=== PATIENT | male | born 1940 | race Caucasian/White ===

== ENCOUNTER 2017-02-18 15:50 | Inpatient (IN) | payer OTHER ==
[~2017-02-18] VITALS: Ht 167.6 cm; Wt 93.5 kg
--- NOTE | 2017-02-18 20:16 | DIAGNOSTIC IMAGING REPORT ---
PROCEDURE: CT LOWER EXT W/CONTRAST-LEFT INDICATION: TENDERNESS, swelling, distal blister, leukocytosis TECHNIQUE: Axial thin-slice CT images were obtained following 145 ml Isovue 300 intravenous contrast without complication. Coronal and sagittal reformations were created. COMPARISON: None. FINDINGS: A circumferential subcutaneous edema with confluent fluid layering along the superficial fascia, most extensive along the anterolateral and anteromedial lower leg. There is a skin blister measuring approximately 5.6 cm in diameter and about 1.6 cm in depth. Fairly extensive fluid along the anterolateral aspect of the ankle. Circumferential skin thickening, worse in the lower leg distally. There is mild circumferential subcutaneous edema in the lower thigh and mainly at the knee. In the proximal medial thigh in the inguinal region, there are a few mildly enlarged lymph nodes surrounded by minor fat stranding. No significant bulky adenopathy. No evidence of deep fascial fluid, soft tissue gas, joint effusion, drainable fluid collection/abscess, phlegmon, or osseous abnormality. Muscles appear normal in bulk and density without focal intramuscular abnormality or suspicious enhancement. The arterial system is patent. There is a coarse calcification in the mid to distal SFA causing a moderate subjective luminal stenosis. Mild scattered atherosclerotic calcification in the distal SFA, popliteal artery, and extending into proximal calf arteries. Arteries appear grossly patent to the foot. The venous system is patent. There are surgical clips in the medial thigh and calf suggestive of prior greater saphenous vein harvest. Subcutaneous patent, nondilated vascular structures are present circumferentially. No focal vascular malformation. Mild degenerative changes in the hip, knee, and ankle joints. IMPRESSION: 1. Subcutaneous fluid and edema circumferentially from the knee into the foot, nonspecific but most suggestive of cellulitis. Normal fluid-containing blister. 2. No drainable abscess, intramuscular or intraosseous abnormality, sign of fasciitis, or soft tissue gas. 3. Mild reactive inguinal adenopathy. 4. Mild overall arterial calcification with a moderate calcific stenosis in the mid to distal superficial femoral artery. 5. Prior greater saphenous vein harvest. 6. Discussed with Dr. Robles in the emergency room.
--- NOTE | 2017-02-18 20:17 | DIAGNOSTIC IMAGING REPORT ---
PROCEDURE: US VENOUS - LEFT EXT INDICATION: SWELLING TECHNIQUE: Duplex sonography of the deep venous system in the left lower extremity was performed. Compression and augmentation techniques were used. COMPARISON: None. FINDINGS: Each interrogated segment of deep vein from the common femoral vein into the calf veins demonstrates normal compressibility, augmentation and/or color Doppler flow without filling defect. Moderate to significant subcutaneous edema. No focal drainable fluid collection. IMPRESSION: 1. No deep venous thrombosis in the left lower extremity. 2. Moderate to significant edema noted.
--- NOTE | 2017-02-18 20:40 | ED ORDER SUMMARY ---
..... Patient: MAYTE LAWSON OrderSheet [facility] VisitID: [id number] [place] [address] 76y, M Registration Date/Time: 02/18/2017 ORDER SHEET Weight: 88.4 kg (stated) Allergies: None GENERAL ORDERS: Blood Culture (No) (N/A) Urgent (16:02/18/2017 Odin Beal) (Ack 16:37 LNations ER Tech1) (16:55 KPage-Kuchan R.N.) CBC w Diff Urgent (16:02/18/2017 Odin Beal) (Ack 16:37 LNations ER Tech1) (16:55 KPage-Kuchan R.N.) CMP Urgent (16:02/18/2017 Odin Beal) (Ack 16:37 LNations ER Tech1) (16:55 KPage-Kuchan R.N.) UA-Culture if indicated Urgent (16:02/18/2017 Odin Beal) (Ack 16:37 LNations ER Tech1) (18:48 KPage-Kuchan R.N.) BNP Urgent (16:02/18/2017 Odin Beal) (Ack 16:37 LNations ER Tech1) (16:55 KPage-Kuchan R.N.) D-Dimer Urgent (16:02/18/2017 Odin Beal) (Ack 16:37 LNations ER Tech1) (16:55 KPage-Kuchan R.N.) Lactic Acid for Sepsis Protocol Urgent (16:02/18/2017 Odin Beal) (Ack 16:37 LNations ER Tech1) (16:55 KPage-Kuchan R.N.) PCT (Procalcitonin) Urgent (16:02/18/2017 Odin Beal) (Ack 16:37 LNations ER Tech1) (16:55 KPage-Kuchan R.N.) EKG - ER Stat (16:02/18/2017 Odin Beal) (Ack 16:33 LNations ER Tech1) (16:39 IJurca ER Tech1) CRP Urgent (16:51 02/18/2017 Odin Beal) (Ack 17:04 LNations ER Tech1) (18:38 KPage-Kuchan R.N.) Sed Rate Urgent (16:51 02/18/2017 Odin Beal) (Ack 17:04 LNations ER Tech1) (18:38 KPage-Kuchan R.N.) PT with INR Urgent (18:01 02/18/2017 Odin Beal) (Ack 18:04 LNations ER Tech1) (18:38 KPage-Kuchan R.N.) PTT Urgent (18:01 02/18/2017 Odin Beal) (Ack 18:04 LNations ER Tech1) (18:38 KPage-Kuchan R.N.) CPK Urgent (18:01 02/18/2017 Odin Beal) (Ack 18:04 LNations ER Tech1) (18:38 KPage-Kuchan R.N.) US Venous Left Urgent (18:06 02/18/2017 Odin Beal) (Ack 18:10 LNations ER Tech1) (18:27 LNations ER Tech1) CT Lower Extremity With Contrast - Left (BUN/Cr 16/0.8) Urgent (18:46 02/18/2017 Odin Beal) (Ack 18:52 LNations ER Tech1) (19:39 MCampbell) Culture, Body Fluid (Body Fluid) (BLISTER) Urgent (19:55 02/18/2017 Richard ER [employer]erry[employer] verbal order read back to Odin Beal) (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 (20:53 02/18/2017)] [Electronically signed by Rhianna Lai R.N. (22:12 02/18/2017)] [Electronically locked/signed by Rhianna Lai R.N. (22:12 02/18/2017)]
--- NOTE | 2017-02-18 20:40 | ED CLINICAL REPORT ---
Clinical Report - Physicians/Mid Levels [facility] [address] [place] [address] 02/18/2017 15:53 Patient: MAYTE LAWSON Time Seen: 16:04; initial patient contact. Arrived- By private vehicle. Historian- patient. HISTORY OF PRESENT ILLNESS Chief Complaint: Injury to left leg. The injury happened about days ago. Injury secondary to other mechansim (unknown). Patient is experiencing moderate pain. Patient denies injury to the head or neck. REVIEW OF SYSTEMS The patient complains of pain on weight bearing. He has had swelling. No tingling, weakness, numbness, suspected foreign body or skin laceration. No chills or fever. All systems otherwise negative, except as recorded above. PAST HISTORY ( Hypertension. Elevated Cholesterol. A fib CAD ADDITIONAL SURGERIES: Appendectomy. AVR. CABG Back Surgery. Hernia Repair. Tonsillectomy. -). Medications: Tamsulosin HCl Oral (Capsule 0.4 mg) 1 capsule, daily. Potassium Chloride ER Oral (Tablet Extended Release 10 meq) 1 tablet, daily. Pitavastatin Calcium Oral (Tablet 4 mg) 1 tablet, daily. Hydrocodone-Acetaminophen Oral (Tablet 7.5-325 mg). Gabapentin Oral 300 mg, 3x a day. Furosemide Oral 40 mg, daily as needed. Finasteride Oral (Tablet 5 mg) 1 tablet, daily. Vitamin B-12 Oral 2500 mcg, daily. Cholecalciferol Oral (Tablet 1000 unit) 1 tablet, daily. Carvedilol Phosphate ER Oral 6.25 mg, daily. Warfarin Sodium Oral (take 2mg friday, friday, , friday, friday and friday and 3mg on tuesdays). Allergies: None. SOCIAL HISTORY Former smoker. Occasional alcohol use. No drug use. ADDITIONAL NOTES The nursing notes have been reviewed. PHYSICAL EXAM Vital Signs: 02/18/2017 16:00 BP: 121/70. HR: 54. RR: 17. O2 saturation: 98%. Temp: 98.8 F. Pain level now: 10. Have been reviewed. Blood pressure normal. Bradycardic. Respiratory rate normal. Temperature normal. Oxygen saturation normal. Appearance: Alert. Oriented X3. No acute distress. Head: Head atraumatic. Eyes: Eyes normal inspection. No pale conjunctivae. ENT: Pharynx normal. CVS: Normal heart rate and rhythm. 2/6 holosystolic systolic murmur. Respiratory: No respiratory distress. Breath sounds normal. Skin: Large area of cellulitis with tenderness, erythema and warmth to left thigh and left leg. Extremities: (Left thigh and leg with +2 edema and erythema and patches of purpura. Large bullae on calf with clear/straw colored fluid.). Extremities otherwise negative. Neuro, Vascular and Tendons: Vascular status intact. Sensation intact. Motor intact. Tendon function intact. Neuro: Oriented X 3. No motor deficit. LABS, X-RAYS, AND EKG Note - Special Studies: CT Left lower extremity: 1. Subcutaneous fluid and edema circumferentially from the knee into the foot, nonspecific but most suggestive of cellulitis. Normal fluid-containing blister. 2. No drainable abscess, intramuscular or intraosseous abnormality, sign of fasciitis, or soft tissue gas. 3. Mild reactive inguinal adenopathy. 4. Mild overall arterial calcification with a moderate calcific stenosis in the mid to distal superficial femoral artery. 5. Prior greater saphenous vein harvest. Laboratory Tests: UA-Culture if indicated: (LILIANA: 02/18/2017 17:13) ( MsgRcvd 02/18/2017 17:46) Final results Test Result Flag Units (Reference) URINE COLOR KRISTIE URINE APPEARANCE CLEAR URINE GLUCOSE NEGATIVE (NEGATIVE) URINE BILIRUBIN NEGATIVE (NEGATIVE) URINE KETONE 1+ (NEGATIVE) URINE SPECIFIC GRAVITY 1.020 (1.010-1.030) URINE PH 6.0 (5.0-8.0) URINE PROTEIN TRACE (NEGATIVE) URINE UROBILINOGEN 0.2 EU/dL (0.2-1.0) URINE NITRITE NEGATIVE (NEGATIVE) URINE BLOOD 1+ (NEGATIVE) URINE LEUK ESTERASE NEGATIVE (NEGATIVE) URINE RBC 0-1 rbc/hpf (0-1) URINE WBC 1-3 wbc/hpf (0-1) URINE EPITHELIAL CELLS RARE EPI/hpf (0-5) URINE BACTERIA MODERATE (2+ TO 3+) (NONE SEEN) URINE COMMENT CULTURE INDICATED 3+ MUCUS1-3 HYALINE CAST PER LOWER POWER FIELD.URINE CULTURES ARE SET-UP BASED ON THE FOLLOWING CRITERIA:POSITIVE NITRITEPOSITIVE LEUKOCYTE ESTERASEGREATER THAN 10 WHITE BLOOD CELLSMODERATE (2+) OR GREATER BACTERIA ESR: (LILIANA: 02/18/2017 16:13) ( [facility] 02/18/2017 17:17) Final results Test Result Flag Units (Reference) SED RATE WESTERGREN 25 H mm/hr (0-20) CBC w Diff: (LILIANA: 02/18/2017 16:13) ( [facility] 02/18/2017 17:30) Final results Test Result Flag Units (Reference) WHITE BLOOD COUNT 21.9 H K/uL (4.5-11.5) RED BLOOD COUNT 4.95 M/uL (4.50-5.90) HEMOGLOBIN 14.6 gm/dL (13.5-17.5) HEMATOCRIT 43.5 % (41.0-53.0) MEAN CELL VOLUME 88 fL (80-100) MEAN CORPUSCULAR HGB 30 pg (26-34) MEAN CORPUSCULAR HGB CONC 34 g/dL (31-37) RED CELL DISTRIBUTION WIDTH 14.0 % (11.6-14.8) PLATELET COUNT 129 L K/uL (150-400) POLY % 66 % (50-75) BAND % 17 H % (0-8) LYMPH 12 L % (25-40) MONO 4 % (3-14) EOSINOPHIL % 1 % (0-4) BASOPHIL % 0 % (0-2) METAMYELOCYTE % 0 % (0-1) MYELOCYTE 0 % (0-1) OTHER CELL TYPE 0 RBC MORPHOLOGY NORMOCYTIC~~NORMOCHROMIC PT with INR: (LILIANA: 02/18/2017 16:13) ( [facility] 02/18/2017 18:14) Final results Test Result Flag Units (Reference) INR 1.5 H (0.8-1.2) Low Intensity Therapy: INR 1.5-2.0 PT range 18.5-23.1Mod.Intensity Therapy: INR 2.0-3.0 PT range 23.1-31.5High Intensity Therapy: INR 2.5-3.5 PT range 27.4-35.5High Intensity Therapy 2: INR 3.0-4.0 PT range 31.5-39.3 APTT 40 H SECONDS (24-34) [id number]: (LILIANA: 02/18/2017 16:13) ( [facility] 02/18/2017 17:27) Final results Test Result Flag Units (Reference) D-DIMER QUANTITATIVE 2.24 H ug/mLFEU (0.27-0.52) The primary value of this quantitative assay relates toits negative predictive value (i.e. exclusion) of pulmonaryembolism/deep vein thrombosis/DIC.Elevated levels of d-dimer may also occur with:, age, cancer, inflammation, liver disease,post-op, infection, hematoma, coronary disease, peripheralarteriopathy, bleeding disorders and thrombolytic treatment.Results should be correlated with other clinical andradiological data.Testing Methodology: Latex Immunoassay CPK: (LILIANA: 02/18/2017 16:13) ( [facility] 02/18/2017 18:34) Final results Test Result Flag Units (Reference) CPK 539 H U/L (24-260) CK-MB 2.9 ng/mL (0.5-3.2) %CKMB 0.5 % (0.0-4.0) [id number]: (LILIANA: 02/18/2017 16:13) ( [facility] 02/18/2017 17:23) Final results Test Result Flag Units (Reference) C-REACTIVE PROTEIN 24.6 H mg/dL (0.0-0.9) BNP: (LILIANA: 02/18/2017 16:13) ( [facility] 02/18/2017 17:27) Final results Test Result Flag Units (Reference) B-TYPE NATRIURETIC PEPTIDE 362 H pg/ml (5-100) [id number]: (LILIANA: 02/18/2017 16:49) ( MsgRcvd 02/18/2017 17:34) Final results Test Result Flag Units (Reference) LACTIC ACID SEPSIS PROTOCOL 1.5 mmol/L (0.4-2.0) [id number]: (LILIANA: 02/18/2017 16:13) ( MsgRcvd 02/18/2017 17:27) Final results Test Result Flag Units (Reference) PROCALCITONIN 0.6 H ng/mL (0-0.5) PCT Concentration: Interpretation : Risk/option for action PCT <=0.5 ng/mL : Systemic : Low risk forinfection(sepsis): progression to severeis not likely. : systemic infection.Local bacterial : CAUTION-PCT levelsinfection is : below 0.5 ng/mL do notpossible. : exclude an infection,because localizedinfections (withoutsystemic signs) may beassociated with suchlow levels. If PCT ismeasured very earlyafter a bacterialchallenge (usually <6hours), these valuesmay still be low. Inthis case PCT shouldbe re-assessed 6-24hours later. PCT >0.5 and : Systemic infection: Moderate risk for<= 2 ng/mL : (sepsis) is : progression to severepossible, but : systemic infection.other conditions : The patient should beare known to : closely monitoredelevate PCT. : both clinically andby re-assessing PCTwithin 6-24 hours. PCT > 2 ng/mL : Systemic infection: High risk for(sepsis) is likely: progression to severeunless other : systemic infection.causes are known. : PCT >= 10 ng/mL : Important systemic: High likelihood ofinflammatory : severe sepsis orresponse, almost : septic shock.exclusively due to:severe bacterial :sepsis or septic :shock. : CMP: (LILIANA: 02/18/2017 16:13) ( MsgRcvd 02/18/2017 17:02) Final results Test Result Flag Units (Reference) GLUCOSE 123 H mg/dL (70-110) BUN 16 mg/dL (7-18) CREATININE 0.8 mg/dL (0.6-1.3) Estimated GFR >60 mL/min Estimated GFR- >60 mL/min Note: Persistent reduction over 3 months in eGFR<60 mL/min/1.73 m2 defines CKD. Patients with eGFR values>=60 mL/min/1.73 m2 may also have CKD if evidence ofpersistent proteinuria. Additional information may be foundat www.kidney.org. SODIUM 136 mmol/L (136-145) POTASSIUM 3.8 mmol/L (3.5-5.1) CHLORIDE 98 mmol/L (98-107) CARBON DIOXIDE 25 mmol/L (21-32) CALCIUM 9.0 mg/dL (8.5-10.1) TOTAL PROTEIN 7.5 g/dL (6.4-8.2) ALBUMIN 3.1 L g/dL (3.3-5.0) BILIRUBIN, TOTAL 1.8 H mg/dL (0.0-1.0) ALKALINE PHOSPHATASE 76 U/L (46-116) AST (SGOT) 37 U/L (15-37) ALT (SGPT) 43 U/L (12-78) . PROGRESS AND PROCEDURES Discussed case with hospitalist, (call returned 18:07 Dr. Zaragoza, add a CPK and US LLE and will go from there.). Reviewed test results and need for additional work-up. Discussed case with hospitalist, (call returned 20:38 Dr. Zaragoza). Reviewed test results and need for additional work-up. Health care provider will see patient in ED. Disposition: Admitted to Acute Care. Condition: good. Admit decision based on need for additional testing, observation and IV antibiotics. CLINICAL IMPRESSION Cellulitis of the left thigh and left lower leg. Moderate leukocytosis with bandemia. INSTRUCTIONS Your Current Medications: CONTINUE TAKING THE FOLLOWING MEDICATIONS: Carvedilol Phosphate ER Oral : 6.25 mg daily. Cholecalciferol Oral : Tablet 1000 unit, 1 tablet daily. Finasteride Oral : Tablet 5 mg, 1 tablet daily. Furosemide Oral : 40 mg daily, prn. Gabapentin Oral : 300 mg 3x a day. Hydrocodone-Acetaminophen Oral : Tablet 7.5-325 mg. Pitavastatin Calcium Oral : Tablet 4 mg, 1 tablet daily. Potassium Chloride ER Oral : Tablet Extended Release 10 meq, 1 tablet daily. Tamsulosin HCl Oral : Capsule 0.4 mg, 1 capsule daily. Vitamin B-12 Oral : 2500 mcg daily. Warfarin Sodium Oral : take 2mg friday, friday, , friday, friday and friday and 3mg on tuesdays. Follow-up: Blood pressure screening was not performed during this visit because the patient has an active diagnosis of hypertension. (Electronically signed by Fermin Robles Dr. 02/18/2017 20:53)
--- NOTE | 2017-02-18 20:40 | ED CLINICAL REPORT ---
Clinical Report - Physicians/Mid Levels [facility] [address] [place] [address] 02/18/2017 15:53 Patient: MAYTE LAWSON Time Seen: 16:04; initial patient contact. Arrived- By private vehicle. Historian- patient. HISTORY OF PRESENT ILLNESS Chief Complaint: Injury to left leg. The injury happened about days ago. Injury secondary to other mechansim (unknown). Patient is experiencing moderate pain. Patient denies injury to the head or neck. REVIEW OF SYSTEMS The patient complains of pain on weight bearing. He has had swelling. No tingling, weakness, numbness, suspected foreign body or skin laceration. No chills or fever. All systems otherwise negative, except as recorded above. PAST HISTORY ( Hypertension. Elevated Cholesterol. A fib CAD ADDITIONAL SURGERIES: Appendectomy. AVR. CABG Back Surgery. Hernia Repair. Tonsillectomy. -). Medications: Tamsulosin HCl Oral (Capsule 0.4 mg) 1 capsule, daily. Potassium Chloride ER Oral (Tablet Extended Release 10 meq) 1 tablet, daily. Pitavastatin Calcium Oral (Tablet 4 mg) 1 tablet, daily. Hydrocodone-Acetaminophen Oral (Tablet 7.5-325 mg). Gabapentin Oral 300 mg, 3x a day. Furosemide Oral 40 mg, daily as needed. Finasteride Oral (Tablet 5 mg) 1 tablet, daily. Vitamin B-12 Oral 2500 mcg, daily. Cholecalciferol Oral (Tablet 1000 unit) 1 tablet, daily. Carvedilol Phosphate ER Oral 6.25 mg, daily. Warfarin Sodium Oral (take 2mg friday, friday, , friday, friday and friday and 3mg on tuesdays). Allergies: None. SOCIAL HISTORY Former smoker. Occasional alcohol use. No drug use. ADDITIONAL NOTES The nursing notes have been reviewed. PHYSICAL EXAM Vital Signs: 02/18/2017 16:00 BP: 121/70. HR: 54. RR: 17. O2 saturation: 98%. Temp: 98.8 F. Pain level now: 10. Have been reviewed. Blood pressure normal. Bradycardic. Respiratory rate normal. Temperature normal. Oxygen saturation normal. Appearance: Alert. Oriented X3. No acute distress. Head: Head atraumatic. Eyes: Eyes normal inspection. No pale conjunctivae. ENT: Pharynx normal. CVS: Normal heart rate and rhythm. 2/6 holosystolic systolic murmur. Respiratory: No respiratory distress. Breath sounds normal. Skin: Large area of cellulitis with tenderness, erythema and warmth to left thigh and left leg. Extremities: (Left thigh and leg with +2 edema and erythema and patches of purpura. Large bullae on calf with clear/straw colored fluid.). Extremities otherwise negative. Neuro, Vascular and Tendons: Vascular status intact. Sensation intact. Motor intact. Tendon function intact. Neuro: Oriented X 3. No motor deficit. LABS, X-RAYS, AND EKG Note - Special Studies: CT Left lower extremity: 1. Subcutaneous fluid and edema circumferentially from the knee into the foot, nonspecific but most suggestive of cellulitis. Normal fluid-containing blister. 2. No drainable abscess, intramuscular or intraosseous abnormality, sign of fasciitis, or soft tissue gas. 3. Mild reactive inguinal adenopathy. 4. Mild overall arterial calcification with a moderate calcific stenosis in the mid to distal superficial femoral artery. 5. Prior greater saphenous vein harvest. Laboratory Tests: UA-Culture if indicated: (LILIANA: 02/18/2017 17:13) ( MsgRcvd 02/18/2017 17:46) Final results Test Result Flag Units (Reference) URINE COLOR KRISTIE URINE APPEARANCE CLEAR URINE GLUCOSE NEGATIVE (NEGATIVE) URINE BILIRUBIN NEGATIVE (NEGATIVE) URINE KETONE 1+ (NEGATIVE) URINE SPECIFIC GRAVITY 1.020 (1.010-1.030) URINE PH 6.0 (5.0-8.0) URINE PROTEIN TRACE (NEGATIVE) URINE UROBILINOGEN 0.2 EU/dL (0.2-1.0) URINE NITRITE NEGATIVE (NEGATIVE) URINE BLOOD 1+ (NEGATIVE) URINE LEUK ESTERASE NEGATIVE (NEGATIVE) URINE RBC 0-1 rbc/hpf (0-1) URINE WBC 1-3 wbc/hpf (0-1) URINE EPITHELIAL CELLS RARE EPI/hpf (0-5) URINE BACTERIA MODERATE (2+ TO 3+) (NONE SEEN) URINE COMMENT CULTURE INDICATED 3+ MUCUS1-3 HYALINE CAST PER LOWER POWER FIELD.URINE CULTURES ARE SET-UP BASED ON THE FOLLOWING CRITERIA:POSITIVE NITRITEPOSITIVE LEUKOCYTE ESTERASEGREATER THAN 10 WHITE BLOOD CELLSMODERATE (2+) OR GREATER BACTERIA ESR: (LILIANA: 02/18/2017 16:13) ( [facility] 02/18/2017 17:17) Final results Test Result Flag Units (Reference) SED RATE WESTERGREN 25 H mm/hr (0-20) CBC w Diff: (LILIANA: 02/18/2017 16:13) ( [facility] 02/18/2017 17:30) Final results Test Result Flag Units (Reference) WHITE BLOOD COUNT 21.9 H K/uL (4.5-11.5) RED BLOOD COUNT 4.95 M/uL (4.50-5.90) HEMOGLOBIN 14.6 gm/dL (13.5-17.5) HEMATOCRIT 43.5 % (41.0-53.0) MEAN CELL VOLUME 88 fL (80-100) MEAN CORPUSCULAR HGB 30 pg (26-34) MEAN CORPUSCULAR HGB CONC 34 g/dL (31-37) RED CELL DISTRIBUTION WIDTH 14.0 % (11.6-14.8) PLATELET COUNT 129 L K/uL (150-400) POLY % 66 % (50-75) BAND % 17 H % (0-8) LYMPH 12 L % (25-40) MONO 4 % (3-14) EOSINOPHIL % 1 % (0-4) BASOPHIL % 0 % (0-2) METAMYELOCYTE % 0 % (0-1) MYELOCYTE 0 % (0-1) OTHER CELL TYPE 0 RBC MORPHOLOGY NORMOCYTIC~~NORMOCHROMIC PT with INR: (LILIANA: 02/18/2017 16:13) ( [facility] 02/18/2017 18:14) Final results Test Result Flag Units (Reference) INR 1.5 H (0.8-1.2) Low Intensity Therapy: INR 1.5-2.0 PT range 18.5-23.1Mod.Intensity Therapy: INR 2.0-3.0 PT range 23.1-31.5High Intensity Therapy: INR 2.5-3.5 PT range 27.4-35.5High Intensity Therapy 2: INR 3.0-4.0 PT range 31.5-39.3 APTT 40 H SECONDS (24-34) [id number]: (LILIANA: 02/18/2017 16:13) ( [facility] 02/18/2017 17:27) Final results Test Result Flag Units (Reference) D-DIMER QUANTITATIVE 2.24 H ug/mLFEU (0.27-0.52) The primary value of this quantitative assay relates toits negative predictive value (i.e. exclusion) of pulmonaryembolism/deep vein thrombosis/DIC.Elevated levels of d-dimer may also occur with:, age, cancer, inflammation, liver disease,post-op, infection, hematoma, coronary disease, peripheralarteriopathy, bleeding disorders and thrombolytic treatment.Results should be correlated with other clinical andradiological data.Testing Methodology: Latex Immunoassay CPK: (LILIANA: 02/18/2017 16:13) ( [facility] 02/18/2017 18:34) Final results Test Result Flag Units (Reference) CPK 539 H U/L (24-260) CK-MB 2.9 ng/mL (0.5-3.2) %CKMB 0.5 % (0.0-4.0) [id number]: (LILIANA: 02/18/2017 16:13) ( [facility] 02/18/2017 17:23) Final results Test Result Flag Units (Reference) C-REACTIVE PROTEIN 24.6 H mg/dL (0.0-0.9) BNP: (LILIANA: 02/18/2017 16:13) ( [facility] 02/18/2017 17:27) Final results Test Result Flag Units (Reference) B-TYPE NATRIURETIC PEPTIDE 362 H pg/ml (5-100) [id number]: (LILIANA: 02/18/2017 16:49) ( MsgRcvd 02/18/2017 17:34) Final results Test Result Flag Units (Reference) LACTIC ACID SEPSIS PROTOCOL 1.5 mmol/L (0.4-2.0) [id number]: (LILIANA: 02/18/2017 16:13) ( MsgRcvd 02/18/2017 17:27) Final results Test Result Flag Units (Reference) PROCALCITONIN 0.6 H ng/mL (0-0.5) PCT Concentration: Interpretation : Risk/option for action PCT <=0.5 ng/mL : Systemic : Low risk forinfection(sepsis): progression to severeis not likely. : systemic infection.Local bacterial : CAUTION-PCT levelsinfection is : below 0.5 ng/mL do notpossible. : exclude an infection,because localizedinfections (withoutsystemic signs) may beassociated with suchlow levels. If PCT ismeasured very earlyafter a bacterialchallenge (usually <6hours), these valuesmay still be low. Inthis case PCT shouldbe re-assessed 6-24hours later. PCT >0.5 and : Systemic infection: Moderate risk for<= 2 ng/mL : (sepsis) is : progression to severepossible, but : systemic infection.other conditions : The patient should beare known to : closely monitoredelevate PCT. : both clinically andby re-assessing PCTwithin 6-24 hours. PCT > 2 ng/mL : Systemic infection: High risk for(sepsis) is likely: progression to severeunless other : systemic infection.causes are known. : PCT >= 10 ng/mL : Important systemic: High likelihood ofinflammatory : severe sepsis orresponse, almost : septic shock.exclusively due to:severe bacterial :sepsis or septic :shock. : CMP: (LILIANA: 02/18/2017 16:13) ( MsgRcvd 02/18/2017 17:02) Final results Test Result Flag Units (Reference) GLUCOSE 123 H mg/dL (70-110) BUN 16 mg/dL (7-18) CREATININE 0.8 mg/dL (0.6-1.3) Estimated GFR >60 mL/min Estimated GFR- >60 mL/min Note: Persistent reduction over 3 months in eGFR<60 mL/min/1.73 m2 defines CKD. Patients with eGFR values>=60 mL/min/1.73 m2 may also have CKD if evidence ofpersistent proteinuria. Additional information may be foundat [email or web address]. SODIUM 136 mmol/L (136-145) POTASSIUM 3.8 mmol/L (3.5-5.1) CHLORIDE 98 mmol/L (98-107) CARBON DIOXIDE 25 mmol/L (21-32) CALCIUM 9.0 mg/dL (8.5-10.1) TOTAL PROTEIN 7.5 g/dL (6.4-8.2) ALBUMIN 3.1 L g/dL (3.3-5.0) BILIRUBIN, TOTAL 1.8 H mg/dL (0.0-1.0) ALKALINE PHOSPHATASE 76 U/L (46-116) AST (SGOT) 37 U/L (15-37) ALT (SGPT) 43 U/L (12-78) . PROGRESS AND PROCEDURES Discussed case with hospitalist, (call returned 18:07 Dr. Zaragoza, add a CPK and US LLE and will go from there.). Reviewed test results and need for additional work-up. Discussed case with hospitalist, (call returned 20:38 Dr. Zaragoza). Reviewed test results and need for additional work-up. Health care provider will see patient in ED. Disposition: Admitted to Acute Care. Condition: good. Admit decision based on need for additional testing, observation and IV antibiotics. CLINICAL IMPRESSION Cellulitis of the left thigh and left lower leg. Moderate leukocytosis with bandemia. INSTRUCTIONS Your Current Medications: CONTINUE TAKING THE FOLLOWING MEDICATIONS: Carvedilol Phosphate ER Oral : 6.25 mg daily. Cholecalciferol Oral : Tablet 1000 unit, 1 tablet daily. Finasteride Oral : Tablet 5 mg, 1 tablet daily. Furosemide Oral : 40 mg daily, prn. Gabapentin Oral : 300 mg 3x a day. Hydrocodone-Acetaminophen Oral : Tablet 7.5-325 mg. Pitavastatin Calcium Oral : Tablet 4 mg, 1 tablet daily. Potassium Chloride ER Oral : Tablet Extended Release 10 meq, 1 tablet daily. Tamsulosin HCl Oral : Capsule 0.4 mg, 1 capsule daily. Vitamin B-12 Oral : 2500 mcg daily. Warfarin Sodium Oral : take 2mg friday, friday, , friday, friday and friday and 3mg on tuesdays. Follow-up: Blood pressure screening was not performed during this visit because the patient has an active diagnosis of hypertension. (Electronically signed by Fermin Robles Dr. 02/18/2017 20:53)
--- NOTE | 2017-02-18 20:40 | ED NURSING NOTES ---
Clinical Report - Nurses [facility] [address] [place] [address] 02/18/2017 15:53 Patient: MAYTE LAWSON TRIAGE Triage time 16:00 Feb 18 2017. Chief Complaint: RIGHT LOWER EXTREMITY PAIN, SWELLING and REDNESS. Location of symptoms- (pt reports 3 days ago waking with redness to inner left knee, over the next 2 days pain, redness and swelling has increased to now it's draining fluid. pt today went to urgent care and was sent in for an eval). Alert. SEPSIS SCREEN: Sepsis Screen: negative. Infection suspected/documented. ROSA COMA SCORE: Rosa Coma Scale: 15- eyes open spontaneously (4); best verbal response- oriented x 4 (5); best motor response- obeys commands (6). --16:10 Mahesh Reyes R.N. 16:00 02/18/17. BP: 121/70. HR: 54. RR: 17. O2 saturation: 98%. Temp: 98.8 F. Pain level now: 6/10. --16:10 Mahesh Reyes R.N. 21:12 02/18/17. BP: 134/91. HR: 97. RR: 17. O2 saturation: 97%. Pain level now: 0/10. --21:17 Mahesh Reyes R.N. Weight: 88.4 kg stated. Height/Length: 66 inches Per Patient. BMI: 31.5. --16:02 Mahesh Reyes R.N. Medications Warfarin Sodium Oral (take 2mg friday, friday, , friday, friday and friday and 3mg on tuesdays). --16:04 Mahesh Reyes R.N. Carvedilol Phosphate ER Oral 6.25 mg, daily. --19:47 Mahesh Reyes R.N. Cholecalciferol Oral (Tablet 1000 unit) 1 tablet, daily. --19:47 Mahesh Reyes R.N. Vitamin B-12 Oral 2500 mcg, daily. --19:48 Mahesh Reyes R.N. Finasteride Oral (Tablet 5 mg) 1 tablet, daily. --19:48 Mahesh Reyes R.N. Furosemide Oral 40 mg, daily as needed. --19:49 Mahesh Reyes R.N. Gabapentin Oral 300 mg, 3x a day. --19:49 Mahesh Reyes R.N. Hydrocodone-Acetaminophen Oral (Tablet 7.5-325 mg). --19:50 Mahesh Reyes R.N. Pitavastatin Calcium Oral (Tablet 4 mg) 1 tablet, daily. --19:51 Mahesh Reyes R.N. Potassium Chloride ER Oral (Tablet Extended Release 10 meq) 1 tablet, daily. --19:51 Mahesh Reyes R.N. Tamsulosin HCl Oral (Capsule 0.4 mg) 1 capsule, daily. --19:52 Mahesh Reyes R.N. The following entry was struck and corrected by Mahesh Reyes R.N., 19:55 (02/18/17) Reason for correction - other(correction). <<STRICKEN ENTRY-- Warfarin Sodium Oral. --16:04 Mahesh Reyes R.N. --END STRIKE>>. Allergies None. --16:05 Mahesh Reyes R.N. Medication/allergy information source: the patient. --16:10 Mahesh Reyes R.N. Medication/allergy information source: other ([facility] fax). --19:57 Mahesh Reyes R.N. History Arrived by private vehicle. Historian: patient. Accompanied by family. Location of injuries: left knee, left leg, left ankle and left foot. This occurred (3 days ago). He has had swelling, redness, trouble walking and weakness. Treatment TOOTH CUTTER: None. PAST MEDICAL HX: Tetanus status: up-to-date. Immunizations: up-to-date. SOCIAL HX: Former smoker, end date 1971. Occasional alcohol use. No drug use. No infectious disease exposure. ABUSE ASSESSMENT: No report of abuse. SELF HARM ASSESSMENT: A self harm assessment was performed. The patient answered "no" to the question "Do you have thoughts of harming or killing yourself?". FALL RISK ASSESSMENT: Fall risk assessment completed. Risk factors identified include patient age greater than 65 years, history of fall and impairment of mobility. Fall interventions initiated. Patient placed in wheelchair. Side rails up x2. Brakes on Bed in low position. Patient visible from nurses' station and identified as a fall risk by ID band. Family at bedside. Call light in reach of patient and family. Instructed not to get up without assistance. --16:10 Mahesh Reyes R.N. PROBLEMS: Hypertension. Elevated Cholesterol. --16:07 Mahesh Reyes R.N. ADDITIONAL SURGERIES: Appendectomy. AVR. Back Surgery. Hernia Repair. Tonsillectomy. --16:07 Mahesh Reyes R.N. Interventions ID band on patient. To treatment room. --16:10 Mahesh Reyes R.N. PHYSICAL ASSESSMENT To room via wheelchair. Patient gowned. GENERAL / NEURO / PSYCH: Oriented X 4. Alert. EXTREMITIES: Serous drainage on the extremities (from rai and inner ankle). Bilateral pitting and seeping edema of the lower extremities involving both feet, both ankles and both lower legs; 3+ pitting and seeping edema of the right lower extremity; pitting and seeping edema of the left lower extremity involving the foot, ankle and lower leg. Left knee. Left leg: tenderness, swelling and erythema. Left ankle: tenderness, swelling and erythema. Left foot. --16:11 Mahesh Reyes R.N. NURSING PROGRESS NOTES coffee brewer, pulse oximeter and NIBP monitor placed on patient; monitor alarms on. Reassurance given to the patient and patient's family. ( pt placed on monitor after listening to heart, pt has a murmur, hr in the one teens, with pvc's). --16:23 Mahesh Reyes R.N. 16:21 02/18/17. HR: 108. --16:23 Mahesh Reyes R.N. EKG time: (1634). EKG was ordered, performed by a tech and shown to the ED physician. --16:40 CintiaJoseph wheat, ER Tech1 16:29 02/18/2017 Site #1 started via IV in the right antecubital space with an 20g angiocath; one attempt. Blood drawn: rainbow set. Labeled in the presence of the patient and sent to the lab. Saline lock flushed with 10 mL saline (placed by Bertha). --16:54 Mahesh Reyes R.N. 16:50 02/18/2017 Site #2 started via IV in the right hand with an 20g angiocath; one attempt. Blood drawn: cultures x1. Labeled in the presence of the patient and sent to the lab. Saline lock flushed with 10 mL saline (lactate). --16:56 Mahesh Reyes R.N. coffee brewer, pulse oximeter and NIBP monitor placed on patient; cardiac/vascular sonographer- Lead II, aVR and V5; monitor alarms on. Reassurance given. Patient identifiers checked. Call light placed in reach. Side rails up x 2. Bed placed in lowest position. Brakes of bed on. Patient waiting for lab and radiology results. ( pt provided urinal to void,). --16:57 Mahesh Reyes R.N. 16:57 02/18/17. BP: 129/92. HR: 109. RR: 17. O2 saturation: 99%. Pain level now: 02/15. --16:58 Mahesh Reyes R.N. Cardiac rhythm: (aflutter with pvcs). --16:58 Mahesh Reyes R.N. 17:29 02/18/17. BP: 121/60. HR: 113. RR: 19. O2 saturation: 96%. Pain level now: 02/15. --17:31 Mhaesh Reyes R.N. Cardiac rhythm: atrial flutter. coffee brewer, pulse oximeter and NIBP monitor placed on patient; monitor alarms on. Reassurance given. Call light placed in reach. Side rails up x 2. Bed placed in lowest position. Brakes of bed on. --17:31 Mahesh Reyes R.N. ( H/P forms on chart.). --18:00 Whitley Adams ER Tech1 18:42 02/18/17. BP: 133/75. HR: 98. RR: 19. O2 saturation: 98%. Temp: 99.8 F. Pain level now: 6/10. --18:44 Mahesh Reyes R.N. 18:49 02/18/2017 Started bag #1 1000 mL IV Fluids IV NS (Saline); at 1000 mL/hr via site #1 via buretrol. Allergies verified and confirmed 5 rights. IV patency established. IV site checked: no pain, redness, or swelling. IV flushed thoroughly pre- and post-medication administration. --18:49 Mahesh Reyes R.N. Patient waiting for CT results. --19:35 Mahesh Reyes R.N. ( MD vazquez'd for pt to have coffee, waiting CT results, pt in poc, family at bedside). --19:36 Mahesh Reyes R.N. 19:37 02/18/17. BP: 134/63. HR: 102. RR: 17. O2 saturation: 97%. Temp: 99.1 F. Pain level now: 0/10. --19:39 Mahesh Reyes R.N. Cardiac rhythm: atrial flutter; (af). Patient identifiers checked. Call light placed in reach. Side rails up x 2. Bed placed in lowest position. Brakes of bed on. ( upon arrival the redness in pts leg outlined in skin ink- no redness has traveled outside of the lines at this time). --19:39 Mahesh Reyes R.N. 20:56 02/18/2017 Started 1 gm of Vancomycin IVPB in bag #1 200 mL; at 200 mL/hr over 1 hour(s) via site #2 via IV pump. Allergies verified and confirmed 5 rights. IV patency established. IV site checked: no pain, redness, or swelling. IV flushed thoroughly pre- and post-medication administration. --20:56 Linda Lauren R.N. 21:01 02/18/17. BP: 136/106 (regular adult cuff) taken on the left arm, while lying. HR: 101. RR: 18. O2 saturation: 97% on room air. --21:02 Linda Lauren R.N. Patient waiting for admit bed. ( iv antibiotics infusing on pumps as ordered. brother remains at bedside, pt waiting bed for admit). --21:18 Mahesh Reyes R.N. 20:55 02/18/2017 IV Fluids IV NS Discontinued: infused. Total amount infused: 1000 mL. IV patency established. IV site checked: no pain, redness, or swelling. IV flushed thoroughly. --21:20 Mahesh Reyes R.N. 21:19 02/18/2017 Started 4.5 gm of Zosyn (Piperacillin Sod-Tazobactam So) IVPB in bag #1 100 mL; at 120 mL/hr via site #1 via IV pump. Allergies verified and confirmed 5 rights. IV patency established. IV site checked: no pain, redness, or swelling. IV flushed thoroughly pre- and post-medication administration. --21:19 Mahesh Reyes R.N. 21:34 02/18/17. BP: 134/91. HR: 97. RR: 17. O2 saturation: 96% on room air. Pain level now: 0/10. --21:35 Mahesh Reyes R.N. 21:41 02/18/17. BP: 135/63. HR: 100. RR: 15. O2 saturation: 95% on room air. Temp: 98.7 F. Pain level now: 2/10. --21:47 Rhianna Lai R.N. Cardiac rhythm: normal sinus rhythm; frequent multifocal PVCs. The patient is calm and has had no adverse reaction. Overall patient status is the same- he states feels better. GENERAL / NEURO / PSYCH: Alert. Oriented X 4. GI / : Denies nausea. --21:47 Rhianna Lai R.N. 22:02/18/2017 Vancomycin IVPB Discontinued: bag #1 infused upon admission. Total amount infused: 250 mL. IV patency established. IV site checked: no pain, redness, or swelling. IV flushed thoroughly. --22: Rhianna Lai R.N. 22:02/18/2017 Zosyn IVPB Continued: upon admission at the rate of 150 mg/hr. 50 mL remaining bag #1. IV patency established. IV site checked: no pain, redness, or swelling. IV flushed thoroughly. --22: Rhianna Lai R.N. DISPOSITION / DISCHARGE 21:58 02/18/2017 Site #2 reassessed; patent, infusing well and no signs of infection or infiltration. --21:59 Rhianna Lai R.N. 21:59 02/18/2017 Site #1 reassessed; patent, line flushes easily, infusing well and no signs of infection or infiltration. Line flushed with saline. Good blood return present. --:59 Rhianna Lai R.N. Cardiac rhythm: normal sinus rhythm; multifocal PVCs. Condition at departure: stable and critical. The goals identified in the patient's plan of care were met. Transported via stretcher by [facility]. Report was given to a nurse via a phone call. Report included patient's care, treatment, medications, reviewed medication reconcilliation, and condition (including any recent changes or anticipated changes). All questions were answered. Report was acknowledged. (YI Day). --22: Rhianna Lai R.N. 21:45 02/18/17. BP: 136/85. HR: 66. RR: 15. O2 saturation: 95% on room air. Temp: 98.7 F (oral). Pain level now: 09/17. --22: Rhianna Lai R.N. Locked/Released at 02/18/2017 22:12 by Rhianna Lai R.N.
--- NOTE | 2017-02-18 20:40 | ED ORDER SUMMARY ---
..... Patient: MAYTE LAWSON OrderSheet [facility] VisitID: [id number] [place] [address] 76y, M Registration Date/Time: 02/18/2017 ORDER SHEET Weight: 88.4 kg (stated) Allergies: None GENERAL ORDERS: Blood Culture (No) (N/A) Urgent (16:02/18/2017 Odin Beal) (Ack 16:37 LNations ER Tech1) (16:55 KPage-Kuchan R.N.) CBC w Diff Urgent (16:02/18/2017 Odin Beal) (Ack 16:37 LNations ER Tech1) (16:55 KPage-Kuchan R.N.) CMP Urgent (16:02/18/2017 Odin Beal) (Ack 16:37 LNations ER Tech1) (16:55 KPage-Kuchan R.N.) UA-Culture if indicated Urgent (16:02/18/2017 Odin Beal) (Ack 16:37 LNations ER Tech1) (18:48 KPage-Kuchan R.N.) BNP Urgent (16:02/18/2017 Odin Beal) (Ack 16:37 LNations ER Tech1) (16:55 KPage-Kuchan R.N.) D-Dimer Urgent (16:02/18/2017 Odin Beal) (Ack 16:37 LNations ER Tech1) (16:55 KPage-Kuchan R.N.) Lactic Acid for Sepsis Protocol Urgent (16:02/18/2017 Odin Beal) (Ack 16:37 LNations ER Tech1) (16:55 KPage-Kuchan R.N.) PCT (Procalcitonin) Urgent (16:02/18/2017 Odin Beal) (Ack 16:37 LNations ER Tech1) (16:55 KPage-Kuchan R.N.) EKG - ER Stat (16:02/18/2017 Odin Beal) (Ack 16:33 LNations ER Tech1) (16:39 IJurca ER Tech1) CRP Urgent (16:51 02/18/2017 Odin Beal) (Ack 17:04 LNations ER Tech1) (18:38 KPage-Kuchan R.N.) Sed Rate Urgent (16:51 02/18/2017 Odin Beal) (Ack 17:04 LNations ER Tech1) (18:38 KPage-Kuchan R.N.) PT with INR Urgent (18:01 02/18/2017 Odin Beal) (Ack 18:04 LNations ER Tech1) (18:38 KPage-Kuchan R.N.) PTT Urgent (18:01 02/18/2017 Odin Beal) (Ack 18:04 LNations ER Tech1) (18:38 KPage-Kuchan R.N.) CPK Urgent (18:01 02/18/2017 Odin Beal) (Ack 18:04 LNations ER Tech1) (18:38 KPage-Kuchan R.N.) US Venous Left Urgent (18:06 02/18/2017 Odin Beal) (Ack 18:10 LNations ER Tech1) (18:27 LNations ER Tech1) CT Lower Extremity With Contrast - Left (BUN/Cr 16/0.8) Urgent (18:46 02/18/2017 Odin Beal) (Ack 18:52 LNations ER Tech1) (19:39 MCampbell) Culture, Body Fluid (Body Fluid) (BLISTER) Urgent (19:55 02/18/2017 Richard ER Business Intelligence Architect verbal order read back to Odin Beal) (20:04 Richard ER Business Intelligence Architect) MEDICATION ORDERS: IV FLUIDS: IV Saline Lock (16:31 02/18/2017 Odin Beal) (16:54 KPage-Kuchan R.N.) IV NS : initial bolus none -, then 1000 mL/hr for X1 (NOW) (18:48 02/18/2017 Odin Beal) (18:49 KPage-Kuginetten R.N.) Vancomycin IV 1 gm/200mL (NOW) (20:31 02/18/2017 Odin Beal) (Ack 20:50 Stanfords R.N.) (20:56 Arron Kaur) Zosyn IV 4.5 gm/100mL (NOW) (20:32 02/18/2017 Odin Beal) (Ack 20:50 Arron Marcelino.Isaac) (21:19 Ros Kaur) ORDER SHEET NOTES: [Electronically signed by Fermin Robles Dr. (20:53 02/18/2017)] [Electronically signed by Rhianna Lai R.N. (22:12 02/18/2017)] [Electronically locked/signed by Rhianna Lai R.N. (22:12 02/18/2017)]
--- NOTE | 2017-02-18 20:40 | ED NURSING NOTES ---
Clinical Report - Nurses [facility] [address] [place] [address] 02/18/2017 15:53 Patient: MAYTE LAWSON TRIAGE Triage time 16:00 Feb 18 2017. Chief Complaint: RIGHT LOWER EXTREMITY PAIN, SWELLING and REDNESS. Location of symptoms- (pt reports 3 days ago waking with redness to inner left knee, over the next 2 days pain, redness and swelling has increased to now it's draining fluid. pt today went to urgent care and was sent in for an eval). Alert. SEPSIS SCREEN: Sepsis Screen: negative. Infection suspected/documented. ROSA COMA SCORE: Rosa Coma Scale: 15- eyes open spontaneously (4); best verbal response- oriented x 4 (5); best motor response- obeys commands (6). --16:10 Mahesh Reyes R.N. 16:00 02/18/17. BP: 121/70. HR: 54. RR: 17. O2 saturation: 98%. Temp: 98.8 F. Pain level now: 6/10. --16:10 Mahesh Reyes R.N. 21:12 02/18/17. BP: 134/91. HR: 97. RR: 17. O2 saturation: 97%. Pain level now: 0/10. --21:17 Mahesh Reyes R.N. Weight: 88.4 kg stated. Height/Length: 66 inches Per Patient. BMI: 31.5. --16:02 Mahesh Reyes R.N. Medications Warfarin Sodium Oral (take 2mg friday, friday, , friday, friday and friday and 3mg on tuesdays). --16:04 Mahesh Reyes R.N. Carvedilol Phosphate ER Oral 6.25 mg, daily. --19:47 Mahesh Reyes R.N. Cholecalciferol Oral (Tablet 1000 unit) 1 tablet, daily. --19:47 Mahesh Reyes R.N. Vitamin B-12 Oral 2500 mcg, daily. --19:48 Mahesh Reyes R.N. Finasteride Oral (Tablet 5 mg) 1 tablet, daily. --19:48 Mahesh Reyes R.N. Furosemide Oral 40 mg, daily as needed. --19:49 Mahesh Reyes R.N. Gabapentin Oral 300 mg, 3x a day. --19:49 Mahesh Reyes R.N. Hydrocodone-Acetaminophen Oral (Tablet 7.5-325 mg). --19:50 Mahesh Reyes R.N. Pitavastatin Calcium Oral (Tablet 4 mg) 1 tablet, daily. --19:51 Mahesh Reyes R.N. Potassium Chloride ER Oral (Tablet Extended Release 10 meq) 1 tablet, daily. --19:51 Mahesh Reyes R.N. Tamsulosin HCl Oral (Capsule 0.4 mg) 1 capsule, daily. --19:52 Mahesh Reyes R.N. The following entry was struck and corrected by Mahesh Reyes R.N., 19:55 (02/18/17) Reason for correction - other(correction). <<STRICKEN ENTRY-- Warfarin Sodium Oral. --16:04 Mahesh Reyes R.N. --END STRIKE>>. Allergies None. --16:05 Mahesh Reyes R.N. Medication/allergy information source: the patient. --16:10 Mahesh Reyes R.N. Medication/allergy information source: other ([facility] fax). --19:57 Mahesh Reyes R.N. History Arrived by private vehicle. Historian: patient. Accompanied by family. Location of injuries: left knee, left leg, left ankle and left foot. This occurred (3 days ago). He has had swelling, redness, trouble walking and weakness. Treatment CULINARY INSTRUCTOR: None. PAST MEDICAL HX: Tetanus status: up-to-date. Immunizations: up-to-date. SOCIAL HX: Former smoker, end date 1971. Occasional alcohol use. No drug use. No infectious disease exposure. ABUSE ASSESSMENT: No report of abuse. SELF HARM ASSESSMENT: A self harm assessment was performed. The patient answered "no" to the question "Do you have thoughts of harming or killing yourself?". FALL RISK ASSESSMENT: Fall risk assessment completed. Risk factors identified include patient age greater than 65 years, history of fall and impairment of mobility. Fall interventions initiated. Patient placed in wheelchair. Side rails up x2. Brakes on Bed in low position. Patient visible from nurses' station and identified as a fall risk by ID band. Family at bedside. Call light in reach of patient and family. Instructed not to get up without assistance. --16:10 Mahesh Reyes R.N. PROBLEMS: Hypertension. Elevated Cholesterol. --16:07 Mahesh Reyes R.N. ADDITIONAL SURGERIES: Appendectomy. AVR. Back Surgery. Hernia Repair. Tonsillectomy. --16:07 Mahesh Reyes R.N. Interventions ID band on patient. To treatment room. --16:10 Mahesh Reyes R.N. PHYSICAL ASSESSMENT To room via wheelchair. Patient gowned. GENERAL / NEURO / PSYCH: Oriented X 4. Alert. EXTREMITIES: Serous drainage on the extremities (from rai and inner ankle). Bilateral pitting and seeping edema of the lower extremities involving both feet, both ankles and both lower legs; 3+ pitting and seeping edema of the right lower extremity; pitting and seeping edema of the left lower extremity involving the foot, ankle and lower leg. Left knee. Left leg: tenderness, swelling and erythema. Left ankle: tenderness, swelling and erythema. Left foot. --16:11 Mahesh Reyes R.N. NURSING PROGRESS NOTES color television console monitor, pulse oximeter and NIBP monitor placed on patient; monitor alarms on. Reassurance given to the patient and patient's family. ( pt placed on monitor after listening to heart, pt has a murmur, hr in the one teens, with pvc's). --16:23 Mahesh Reyes R.N. 16:21 02/18/17. HR: 108. --16:23 Mahesh Reyes R.N. EKG time: (1634). EKG was ordered, performed by a tech and shown to the ED physician. --16:40 CintiaJoseph wheat, ER Tech1 16:29 02/18/2017 Site #1 started via IV in the right antecubital space with an 20g angiocath; one attempt. Blood drawn: rainbow set. Labeled in the presence of the patient and sent to the lab. Saline lock flushed with 10 mL saline (placed by Bertha). --16:54 Mahesh Reyes R.N. 16:50 02/18/2017 Site #2 started via IV in the right hand with an 20g angiocath; one attempt. Blood drawn: cultures x1. Labeled in the presence of the patient and sent to the lab. Saline lock flushed with 10 mL saline (lactate). --16:56 Mahesh Reyes R.N. color television console monitor, pulse oximeter and NIBP monitor placed on patient; threat monitoring analyst- Lead II, aVR and V5; monitor alarms on. Reassurance given. Patient identifiers checked. Call light placed in reach. Side rails up x 2. Bed placed in lowest position. Brakes of bed on. Patient waiting for lab and radiology results. ( pt provided urinal to void,). --16:57 Mahesh Reyes R.N. 16:57 02/18/17. BP: 129/92. HR: 109. RR: 17. O2 saturation: 99%. Pain level now: 02/15. --16:58 Mahesh Reyes R.N. Cardiac rhythm: (aflutter with pvcs). --16:58 Mahesh Reyes R.N. 17:29 02/18/17. BP: 121/60. HR: 113. RR: 19. O2 saturation: 96%. Pain level now: 02/15. --17:31 Mahesh Reyes R.N. Cardiac rhythm: atrial flutter. color television console monitor, pulse oximeter and NIBP monitor placed on patient; monitor alarms on. Reassurance given. Call light placed in reach. Side rails up x 2. Bed placed in lowest position. Brakes of bed on. --17:31 Mahesh Reyes R.N. ( H/P forms on chart.). --18:00 Whitley Adams ER Tech1 18:42 02/18/17. BP: 133/75. HR: 98. RR: 19. O2 saturation: 98%. Temp: 99.8 F. Pain level now: 6/10. --18:44 Mahesh Reyes R.N. 18:49 02/18/2017 Started bag #1 1000 mL IV Fluids IV NS (Saline); at 1000 mL/hr via site #1 via buretrol. Allergies verified and confirmed 5 rights. IV patency established. IV site checked: no pain, redness, or swelling. IV flushed thoroughly pre- and post-medication administration. --18:49 Mahesh Reyes R.N. Patient waiting for CT results. --19:35 Mahesh Reyes R.N. ( MD vazquez'd for pt to have coffee, waiting CT results, pt in poc, family at bedside). --19:36 Mahesh Reyes R.N. 19:37 02/18/17. BP: 134/63. HR: 102. RR: 17. O2 saturation: 97%. Temp: 99.1 F. Pain level now: 0/10. --19:39 Mahesh Reyes R.N. Cardiac rhythm: atrial flutter; (af). Patient identifiers checked. Call light placed in reach. Side rails up x 2. Bed placed in lowest position. Brakes of bed on. ( upon arrival the redness in pts leg outlined in skin ink- no redness has traveled outside of the lines at this time). --19:39 Mahesh Reyes R.N. 20:56 02/18/2017 Started 1 gm of Vancomycin IVPB in bag #1 200 mL; at 200 mL/hr over 1 hour(s) via site #2 via IV pump. Allergies verified and confirmed 5 rights. IV patency established. IV site checked: no pain, redness, or swelling. IV flushed thoroughly pre- and post-medication administration. --20:56 Linda Lauren R.N. 21:01 02/18/17. BP: 136/106 (regular adult cuff) taken on the left arm, while lying. HR: 101. RR: 18. O2 saturation: 97% on room air. --21:02 Linda Lauren R.N. Patient waiting for admit bed. ( iv antibiotics infusing on pumps as ordered. brother remains at bedside, pt waiting bed for admit). --21:18 Mahesh Reyes R.N. 20:55 02/18/2017 IV Fluids IV NS Discontinued: infused. Total amount infused: 1000 mL. IV patency established. IV site checked: no pain, redness, or swelling. IV flushed thoroughly. --21:20 Mahesh Reyes R.N. 21:19 02/18/2017 Started 4.5 gm of Zosyn (Piperacillin Sod-Tazobactam So) IVPB in bag #1 100 mL; at 120 mL/hr via site #1 via IV pump. Allergies verified and confirmed 5 rights. IV patency established. IV site checked: no pain, redness, or swelling. IV flushed thoroughly pre- and post-medication administration. --21:19 Mahesh Reyes R.N. 21:34 02/18/17. BP: 134/91. HR: 97. RR: 17. O2 saturation: 96% on room air. Pain level now: 0/10. --21:35 Mahesh Reyes R.N. 21:41 02/18/17. BP: 135/63. HR: 100. RR: 15. O2 saturation: 95% on room air. Temp: 98.7 F. Pain level now: 2/10. --21:47 Rhianna Lai R.N. Cardiac rhythm: normal sinus rhythm; frequent multifocal PVCs. The patient is calm and has had no adverse reaction. Overall patient status is the same- he states feels better. GENERAL / NEURO / PSYCH: Alert. Oriented X 4. GI / : Denies nausea. --21:47 Rhianna Lai R.N. 22:02/18/2017 Vancomycin IVPB Discontinued: bag #1 infused upon admission. Total amount infused: 250 mL. IV patency established. IV site checked: no pain, redness, or swelling. IV flushed thoroughly. --22: Rhianna Lai R.N. 22:02/18/2017 Zosyn IVPB Continued: upon admission at the rate of 150 mg/hr. 50 mL remaining bag #1. IV patency established. IV site checked: no pain, redness, or swelling. IV flushed thoroughly. --22: Rhianna Lai R.N. DISPOSITION / DISCHARGE 21:58 02/18/2017 Site #2 reassessed; patent, infusing well and no signs of infection or infiltration. --21:59 Rhianna Lai R.N. 21:59 02/18/2017 Site #1 reassessed; patent, line flushes easily, infusing well and no signs of infection or infiltration. Line flushed with saline. Good blood return present. --:59 Rhianna Lai R.N. Cardiac rhythm: normal sinus rhythm; multifocal PVCs. Condition at departure: stable and critical. The goals identified in the patient's plan of care were met. Transported via stretcher by [employer]. Report was given to a nurse via a phone call. Report included patient's care, treatment, medications, reviewed medication reconcilliation, and condition (including any recent changes or anticipated changes). All questions were answered. Report was acknowledged. (YI Day). --22: Rhianna Lai R.N. 21:45 02/18/17. BP: 136/85. HR: 66. RR: 15. O2 saturation: 95% on room air. Temp: 98.7 F (oral). Pain level now: 09/17. --22: Rhianna Lai R.N. Locked/Released at 02/18/2017 22:12 by Rhianna Lai R.N.
--- NOTE | 2017-02-18 21:23 | Progress Note ---
Subjective General Admission History and Physical Examination Patient Name: Carlos Sequeira Admission Date: February 18, 2017 Primary Care Provider: Kar Silver M.D. Attending Physician: Zeyad Onofre M.D. Admitting Physician: Luigi Zaragoza M.D. Code Status: FULL CODE Room: 306 Status: Inpatient, ACU SUBJECTIVE Historian: Patient Reliability: Good Chief Complaint: Swelling, redness, pain left lower leg of 3 days duration History of Present Illness: The patient is a 76-year-old white male with a significant past medical history of atrial fib/flutter, aortic valve disease, CHF, hypercholesterolemia, BPH, who presented to [facility] emergency department on the day of admission secondary to complaints of redness, swelling, warmth, and pain of the left leg of approximately 3 days duration. [facility] ER evaluation was consistent with cellulitis of left lower leg. Secondary to the above, the patient was admitted by Luigi Zaragoza M.D. for further evaluation and treatment. The history of present was apparently began approximately 3 days prior to admission when the patient noted redness involving the left lower leg. This progressed over the next several days to involve the entire left lower leg and was associated with significant swelling and pain. There is no associated fever or chills. The patient any history of injury to the left lower leg. Secondary to the above she presented to [facility] emergency department for further evaluation and treatment. [facility] ER evaluation showed the patient to have vital signs of 121/70, pulse 54, respirations 17, temperature 98.8 Fahrenheit orally, O2 sat 98% room air. Physical exam showed marked swelling redness and warmth and tenderness of the left lower leg. There was a large bulla present lower leg. Venous Doppler and ultrasound examination was unremarkable for DVT. CT scan of the left leg showed findings consistent with cellulitis without findings of abscess or necrotizing fasciitis. WBC was elevated at 21.9. With left shift noted. Procalcitonin mildly elevated at 0.6. Secondary to the above the patient was admitted with a diagnosis of cellulitis left lower leg for further evaluation and treatment. Zosyn and vancomycin administered in the emergency department. PAST MEDICAL HISTORY Illnesses: 1. Aortic valvular disease 2. Atrial fib/flutter 3. Chronic anticoagulation 4. BPH 5. Hypercholesterolemia 6. Peripheral vascular disease 7. CHF 8. Vertebral disc disease Allergies: 1. No known drug allergies Medications: 1. Coumadin 2 mg daily except 3 mg on Tuesdays 2. Vitamin D 1000 units by mouth daily 3. B12 2500 g by mouth daily 4. Vicodin 7.5/325 1 by mouth every 6 hours when necessary pain 5. Lasix 40 mg by mouth daily 6. Finasteride 5 mg by mouth daily 7. Flomax 0.4 mg by mouth daily 8. KCl 10 mEq by mouth daily 9. Gabapentin 300 mg by mouth 3 times a day 10. Coreg 6.25 mg by mouth daily Surgery: 1. Back surgery 2. Neck surgery 3. AVR 2008 4. CABG 2008 Injuries: 1. Back and neck injury Hospitalizations: 1. For above surgery medical problems FAMILY HISTORY Parents: 1. Father, , 58, heart disease, 2. Mother, , 65, colon cancer Siblings: 1. Female, living, 73, healthy 2. Male, living, 71, healthy 3. Female, living, 68, healthy 4. Male, living, 55, healthy Children: 1. Female, living, 58, healthy 2. Female, living, 50, healthy 3. Female, living, 48, healthy Other significant family history: None SOCIAL HISTORY 1. Marital Status: 2. Congregational: None 3. Education: High school 4. Employment History: [employer], retired 5. Occupational health exposures: Heavy lifting, loud noises HABITS 1. Tobacco: 10 pack years, stopped 45 years prior to admission 2. Drugs: None 3. Alcohol: One ounce per month 4. Caffeine: None HEALTH SUPERVISION Item/Test 1. Colonoscopy 2012 2. EKG 2017 IMMUNIZATIONS: 1. Pneumococcal: 2016 2. Influenza: 2017 3. Tetanus: Unknown ADVANCED DIRECTIVES: 1. Living well: Yes 2. POLST: Yes 3. Code Status: FULL CODE 4. Durable Power Machinist/Machine Builder Health care: Yes 5. Donor card: No REVIEW OF SYSTEMS Remarkable for those things stated in the history of present illness and past medical history. Seventeen point review of system completed with the following notable findings: General: Leg pain, fever, weakness Skin: Rash, dryness, redness Eyes: Visual loss requiring corrective lenses Ears: Tinnitus Nose: Nasal discharge Throat: Hoarseness, sore throat Cardiovascular: Irregular heartbeat, ankle swelling, shortness of breath with exertion, heart murmur Genitourinary: Poor urinary stream Gastrointestinal: Reflux Musculoskeletal: Joint stiffness, joint pain, joint swelling, backache, muscle cramping Endocrine: Heat/cold intolerance, excessive thirst/urination Psychological: Difficulty sleeping Physical Exam Vital Signs / I&Os Vital Signs Date Time Temp Pulse Resp B/P Pulse O2 O2 Flow FiO2 Ox Delivery Rate 02/18 2243 Room Air 02/18 2224 99.9 100 22 126/55 96 Room Air General Appearance Alert, Oriented X3, Cooperative, No acute distress HEENT Atraumatic, PERRLA, EOMI, Moist mucous membranes Lungs Clear to auscultation, Normal air movement Neck Supple, No JVD, 2+ carotid pulse wo bruit Cardiovascular Normal S1 and S2, irregular rhythm, rate controlled Abdomen Normal bowel sounds, Soft, No tenderness, No guarding, No rebound Extremities No cyanosis, No clubbing, circumferential edema, redness with large bulla present (L) lower leg. See photodocumentation Neurological Cranial nerves intact, Strength 5/5 x4 ext's, No lateralizing signs Psych/Mental Status Mental status normal, Mood normal LAB Results Laboratory Tests 02/18 02/18 02/18 02/18 1713 1649 1613 1613 Chemistry Lactic Acid (0.4 - 2.0 mmol/L) 1.5 Creatine Kinase (24 - 260 U/L) 539 CK-MB (CK-2) (0.5 - 3.2 ng/mL) 2.9 CK/CKMB % Calc (0.0 - 4.0 %) 0.5 Procalcitonin (0 - 0.5 ng/mL) 0.6 Urines Urine Color KRISTIE Urine Appearance CLEAR Urine pH (5.0 - 8.0) 6.0 Ur Specific [place] (1.010 - 1.030) 1.020 Urine Protein (NEGATIVE) TRACE Urine Ketones (NEGATIVE) 1+ Urine Blood (NEGATIVE) 1+ Urine Nitrite (NEGATIVE) NEGATIVE Urine Bilirubin (NEGATIVE) NEGATIVE Urine Urobilinogen (0.2 - 1.0 EU/dL) 0.2 Ur Leukocyte Esterase (NEGATIVE) NEGATIVE Urine RBC (0 - 1 rbc/hpf) 0-1 Urine WBC (0 - 1 wbc/hpf) 1-3 Ur Epithelial Cells (0 - 5 EPI/hpf) RARE Urine Bacteria (NONE SEEN) MODERATE (2+ TO 3+) Urine Glucose (NEGATIVE) NEGATIVE Urine Comment CULTURE INDICATED 02/18 02/18 02/18 1613 1613 1613 Chemistry Plasma Sodium (136 - 145 mmol/L) 136 Plasma Potassium (3.5 - 5.1 mmol/L) 3.8 Plasma Chloride (98 - 107 mmol/L) 98 CO2 (Enzymatic) (21 - 32 mmol/L) 25 BUN (7 - 18 mg/dL) 16 Creatinine (0.6 - 1.3 mg/dL) 0.8 Est GFR ( Amer) (mL/min) >60 Est GFR (Non-Af Amer) (mL/min) >60 Glucose (70 - 110 mg/dL) 123 Plasma Calcium (8.5 - 10.1 mg/dL) 9.0 Total Bilirubin (0.0 - 1.0 mg/dL) 1.8 AST (15 - 37 U/L) 37 ALT (12 - 78 U/L) 43 Alkaline Phosphatase (46 - 116 U/L) 76 C-Reactive Protein (0.0 - 0.9 mg/dL) 24.6 B-Natriuretic Peptide (5 - 100 pg/ml) 362 Total Protein (6.4 - 8.2 g/dL) 7.5 Albumin (3.3 - 5.0 g/dL) 3.1 Coagulation INR (0.8 - 1.2) 1.5 APTT (24 - 34 SECONDS) 40 D-Dimer, Quantitative (0.27 - 0.52 ug/mLFEU) 2.24 Hematology WBC (4.5 - 11.5 K/uL) 21.9 RBC (4.50 - 5.90 M/uL) 4.95 Hgb (13.5 - 17.5 gm/dL) 14.6 Hct (41.0 - 53.0 %) 43.5 MCV (80 - 100 fL) 88 MCH (26 - 34 pg) 30 RDW (11.6 - 14.8 %) 14.0 Neut % (Auto) (50 - 75 %) 66 Lymph % (Auto) (25 - 40 %) 12 [place] % (Auto) (3 - 14 %) 4 Eos % (Auto) (0 - 4 %) 1 Baso % (Auto) (0 - 2 %) 0 Band Neutrophils % (0 - 8 %) 17 Metamyelocytes % (0 - 1 %) 0 Myelocytes (0 - 1 %) 0 Other Cell Type 0 Plt Count, EDTA (150 - 400 K/uL) 129 RBC Morphology (3415 A) NORMOCHROMIC PUBS MCHC (31 - 37 g/dL) 34 ESR Westergren (0 - 20 mm/hr) 25 Microbiology Date/Time Procedure - Status Source Growth 02/18 1955 Anaerobic Culture - RECD BODY FLUID 02/18 1955 Body Fluid Culture - RECD BODY FLUID 02/18 1955 Gram Stain - RECD BODY FLUID 02/18 1715 Blood Culture - RECD BLOOD 02/18 1713 Urine Culture - RECD URINE CC 02/18 1649 Blood Culture - RECD BLOOD Imaging Venoue Doppler and US IMPRESSION: 1. No deep venous thrombosis in the left lower extremity. 2. Moderate to significant edema noted. Dictated by: NICHOL STEWART MD D: MIL[place];02/18/172016 CT Scan (L) LE IMPRESSION: 1. Subcutaneous fluid and edema circumferentially from the knee into the foot, nonspecific but most suggestive of cellulitis. Normal fluid-containing blister. 2. No drainable abscess, intramuscular or intraosseous abnormality, sign of fasciitis, or soft tissue gas. 3. Mild reactive inguinal adenopathy. 4. Mild overall arterial calcification with a moderate calcific stenosis in the mid to distal superficial femoral artery. 5. Prior greater saphenous vein harvest. 6. Discussed with Dr. Robles in the emergency room. Dictated by: NICHOL STEWART MD D: MILTON;02/18/172015 Assessment and Plan Problem List 1. Cellulitis of leg, left Plan -The patient presents with findings of cellulitis left lower extremity. -Venous Doppler ultrasound showed no signs of DVT -CT scan of left eye shows no signs of abscess or necrotizing fasciitis -Gram stain, Culture and sensitivity obtained of left leg bulla -Vancomycin/Zosyn -Monitor 2. Atrial fibrillation Status Chronic Onset Date Unknown Plan -Patient with long-standing history of atrial fibrillation/flutter -Coreg 3.125 mg by mouth twice a day -Heart rate adequately controlled at this time -Continue anticoagulation. INR slightly low. Increase Coumadin to 2.5 mg by mouth daily -Daily INR -Monitor 3. Chronic anticoagulation Status Chronic Onset Date Unknown Plan -Patient on chronic anticoagulation -INR slightly low -Increase Coumadin to 2.5 mg by mouth twice a day -Daily INR 4. Hypertension Status Chronic Onset Date Unknown Plan -Patient with long-standing history of hypertension -Blood pressure well controlled at this time -Continue outpatient medical regimen -Cardiac diet/low-salt diet -Monitor 5. BPH (benign prostatic hyperplasia) Status Chronic Onset Date Unknown Plan -Patient with history of BPH -Continue finasteride/Flomax -Monitor for urinary retention 6. Hyperlipidemia Status Chronic Onset Date Unknown Plan -Patient with history of hyperlipidemia -Lipitor 40 mg by mouth daily 7. Aortic valve disease Status Chronic Onset Date Unknown Plan -Patient with history of aortic valve disease/aortic valve replacement -No further evaluation at this time 8. Coronary artery disease Status Chronic Onset Date Unknown Plan -Patient with history of coronary disease -No recent history of chest pain -Monitor -Check lipid profile 9. Rhabdomyolysis Status Acute Onset Date Unknown Plan -Patient with findings of mild elevation of CPK, normal MB fraction -Monitor -IV fluid therapy, monitor in setting of mild elevation of BNP. 10. UTI (urinary tract infection) Status Acute Onset Date Unknown Plan -Patient with abnormal urinalysis suggestive of UTI -Urine culture and sensitivity pending -Antimicrobials as above 11. Lumbar disc disease Status Chronic Onset Date Unknown Plan -History of lumbar disc disease/spinal stenosis/foraminal stenosis -No further evaluation this time -Monitor Current status: Fair, unstable Anticipated discharge date: Anticipated discharge in 3-4 days Anticipated discharge placement: Home Patient care time: Time in chart review, patient interview, physical exam, CPOE, and care documentation: 70 mins Visit to patient today: 2 Complexity of care: High DVT prophylaxis: Coumadin GI prophylaxis: Protonix E&M Codes Admission: Inpt-High/19591
--- NOTE | 2017-02-18 22:13 | ED MED RECONCILIATION SUMMARY ---
Patient: MAYTE LAWSON Medication Reconciliation Report [facility] VisitID: [id number] [address] [place] [address] 76y, M Registration Date/Time: 02/18/2017 Weight: 88.4 kg Height/Length: 66 in. BMI: 31.5 ALLERGIES: None The patient's Home Medications are listed below: CONTINUE TAKING THE FOLLOWING MEDICATIONS: Carvedilol Phosphate ER Oral 6.25 mg, daily Cholecalciferol Oral (1000 unit) 1 tablet, daily Finasteride Oral (5 mg) 1 tablet, daily Furosemide Oral 40 mg, daily Gabapentin Oral 300 mg, 3x a day Hydrocodone-Acetaminophen Oral (7.5-325 mg) Pitavastatin Calcium Oral (4 mg) 1 tablet, daily Potassium Chloride ER Oral (10 meq) 1 tablet, daily Tamsulosin HCl Oral (0.4 mg) 1 capsule, daily Vitamin B-12 Oral 2500 mcg, daily Warfarin Sodium Oral, take 2mg friday, friday, , friday, friday and friday and 3mg on tuesdays The source(s) of the original Home Medication information: patient other [facility] fax The following Medications were given to the patient in the Emergency Department: IV NS IV Fluids bolus 0, then 1000 mL/hr, administered: 02/18/2017 6:49:00 PM Vancomycin [IVPB] IVPB bolus 0, then 1 gm 200 mL/hr, administered: 02/18/2017 8:56:00 PM Zosyn [IVPB] IVPB bolus 0, then 4.5 gm 120 mL/hr, administered: 02/18/2017 9:19:00 PM The following Medications were prescribed to the patient: None.
--- NOTE | 2017-02-18 22:13 | ED MAR SUMMARY ---
..... Medication Administration Record [facility] [address] [place] [address] Patient: MAYTE LAWSON Visit ID: [id number] 76y, M Weight: 88.4 kg Height/Length: 66 in BMI: 31.5 ALLERGIES: None Start 18:49 02/18/2017 Mahesh Reyes R.N., Stop 20:55 02/18/2017 Mahesh Reyes R.N. Medication Administered: IV NS (SALINE), Dose: IV Fluids, Rate: 1000 mL/hr, Dispensed: 1000 mL bag, Site: #1 right AC. Medication Ordered: IV NS : initial bolus none -, then 1000 mL/hr for X1 (NOW). Start 20:56 02/18/2017 Linda Lauren R.N., Stop 22:01 02/18/2017 Rhianna Lai R.N. Medication Administered: VANCOMYCIN [IVPB], Dose: 1 gm IVPB over 1 hour(s), Rate: 200 mL/hr, Dispensed: 200 mL bag, Site: #2 right hand. Medication Ordered: Vancomycin IV 1 gm/200mL (NOW). Start 21:19 02/18/2017 Mahesh Reyes R.N., Continued Upon Admission 22:01 02/18/2017 Rhianna Lai R.N. Medication Administered: ZOSYN [IVPB] (PIPERACILLIN SOD-TAZOBACTAM SO), Dose: 4.5 gm IVPB, Rate: 120 mL/hr, Dispensed: 100 mL bag, Site: #1 right AC. Medication Ordered: Zosyn IV 4.5 gm/100mL (NOW).
--- NOTE | 2017-02-18 22:13 | ED MED RECONCILIATION SUMMARY ---
Patient: MAYTE LAWSON Medication Reconciliation Report [facility] VisitID: [id number] [address] [place] [address] 76y, M Registration Date/Time: 02/18/2017 Weight: 88.4 kg Height/Length: 66 in. BMI: 31.5 ALLERGIES: None The patient's Home Medications are listed below: CONTINUE TAKING THE FOLLOWING MEDICATIONS: Carvedilol Phosphate ER Oral 6.25 mg, daily Cholecalciferol Oral (1000 unit) 1 tablet, daily Finasteride Oral (5 mg) 1 tablet, daily Furosemide Oral 40 mg, daily Gabapentin Oral 300 mg, 3x a day Hydrocodone-Acetaminophen Oral (7.5-325 mg) Pitavastatin Calcium Oral (4 mg) 1 tablet, daily Potassium Chloride ER Oral (10 meq) 1 tablet, daily Tamsulosin HCl Oral (0.4 mg) 1 capsule, daily Vitamin B-12 Oral 2500 mcg, daily Warfarin Sodium Oral, take 2mg friday, friday, , friday, friday and friday and 3mg on tuesdays The source(s) of the original Home Medication information: patient other [facility] fax The following Medications were given to the patient in the Emergency Department: IV NS IV Fluids bolus 0, then 1000 mL/hr, administered: 02/18/2017 6:49:00 PM Vancomycin [IVPB] IVPB bolus 0, then 1 gm 200 mL/hr, administered: 02/18/2017 8:56:00 PM Zosyn [IVPB] IVPB bolus 0, then 4.5 gm 120 mL/hr, administered: 02/18/2017 9:19:00 PM The following Medications were prescribed to the patient: None.
--- NOTE | 2017-02-18 22:13 | ED DISCHARGE INSTRUCTIONS ---
Patient: MAYTE LAWSON General Instructions [facility] VisitID: [id number] [place] [address] 76y, M Registration Date/Time: 02/18/2017 Cellulitis of the left thigh and left lower leg. Moderate leukocytosis with bandemia. INSTRUCTIONS Your Current Medications: CONTINUE TAKING THE FOLLOWING MEDICATIONS: Carvedilol Phosphate ER Oral : 6.25 mg daily. Cholecalciferol Oral : Tablet 1000 unit, 1 tablet daily. Finasteride Oral : Tablet 5 mg, 1 tablet daily. Furosemide Oral : 40 mg daily, prn. Gabapentin Oral : 300 mg 3x a day. Hydrocodone-Acetaminophen Oral : Tablet 7.5-325 mg. Pitavastatin Calcium Oral : Tablet 4 mg, 1 tablet daily. Potassium Chloride ER Oral : Tablet Extended Release 10 meq, 1 tablet daily. Tamsulosin HCl Oral : Capsule 0.4 mg, 1 capsule daily. Vitamin B-12 Oral : 2500 mcg daily. Warfarin Sodium Oral : take 2mg friday, friday, , friday, friday and friday and 3mg on tuesdays. Follow-up: Blood pressure screening was not performed during this visit because the patient has an active diagnosis of hypertension. (Electronically signed by Fermin Robles Dr. 02/18/2017 20:53)
--- NOTE | 2017-02-18 22:13 | ED MAR SUMMARY ---
..... Medication Administration Record [facility] [address] [place] [address] Patient: MAYTE LAWSON Visit ID: [id number] 76y, M Weight: 88.4 kg Height/Length: 66 in BMI: 31.5 ALLERGIES: None Start 18:49 02/18/2017 Mahesh Reyes R.N., Stop 20:55 02/18/2017 Mahesh Reyes R.N. Medication Administered: IV NS (SALINE), Dose: IV Fluids, Rate: 1000 mL/hr, Dispensed: 1000 mL bag, Site: #1 right AC. Medication Ordered: IV NS : initial bolus none -, then 1000 mL/hr for X1 (NOW). Start 20:56 02/18/2017 Linda Lauren R.N., Stop 22:01 02/18/2017 Rhianna Lai R.N. Medication Administered: VANCOMYCIN [IVPB], Dose: 1 gm IVPB over 1 hour(s), Rate: 200 mL/hr, Dispensed: 200 mL bag, Site: #2 right hand. Medication Ordered: Vancomycin IV 1 gm/200mL (NOW). Start 21:19 02/18/2017 Mahesh Reyes R.N., Continued Upon Admission 22:01 02/18/2017 Rhianna Lai R.N. Medication Administered: ZOSYN [IVPB] (PIPERACILLIN SOD-TAZOBACTAM SO), Dose: 4.5 gm IVPB, Rate: 120 mL/hr, Dispensed: 100 mL bag, Site: #1 right AC. Medication Ordered: Zosyn IV 4.5 gm/100mL (NOW).
--- NOTE | 2017-02-18 22:13 | ED DISCHARGE INSTRUCTIONS ---
Patient: MAYTE LAWSON General Instructions [facility] VisitID: [id number] [place] [address] 76y, M Registration Date/Time: 02/18/2017 Cellulitis of the left thigh and left lower leg. Moderate leukocytosis with bandemia. INSTRUCTIONS Your Current Medications: CONTINUE TAKING THE FOLLOWING MEDICATIONS: Carvedilol Phosphate ER Oral : 6.25 mg daily. Cholecalciferol Oral : Tablet 1000 unit, 1 tablet daily. Finasteride Oral : Tablet 5 mg, 1 tablet daily. Furosemide Oral : 40 mg daily, prn. Gabapentin Oral : 300 mg 3x a day. Hydrocodone-Acetaminophen Oral : Tablet 7.5-325 mg. Pitavastatin Calcium Oral : Tablet 4 mg, 1 tablet daily. Potassium Chloride ER Oral : Tablet Extended Release 10 meq, 1 tablet daily. Tamsulosin HCl Oral : Capsule 0.4 mg, 1 capsule daily. Vitamin B-12 Oral : 2500 mcg daily. Warfarin Sodium Oral : take 2mg friday, friday, , friday, friday and friday and 3mg on tuesdays. Follow-up: Blood pressure screening was not performed during this visit because the patient has an active diagnosis of hypertension. (Electronically signed by Fermin Robles Dr. 02/18/2017 20:53)
[2017-02-18 22:24] VITALS: BP 126/55
[2017-02-18] MEDS ORDERED: PITAVASTATIN CALCIUM PO (23:02)
[2017-02-18] MEDS ORDERED: COUMADIN1 MG PO (23:04)
[2017-02-18] MEDS ORDERED: CARVEDILOL6.25 MG PO (23:05)
[2017-02-18] MEDS ORDERED: VITAMIN D-31000 UNIT PO (23:06)
[2017-02-18] MEDS ORDERED: VITAMIN B 12 (23:07)
[2017-02-18] MEDS ORDERED: FINASTERIDE5 MG PO (23:07)
[2017-02-18] MEDS ORDERED: FUROSEMIDE40 MG PO (23:09)
[2017-02-18] MEDS ORDERED: HYDROCODONE (23:10)
[2017-02-18] MEDS ORDERED: POTASSIUM CHLO10 ME2 PO (23:11)
[2017-02-18] MEDS ORDERED: TAMSULOSIN HCL0.4 MG PO (23:11)
[2017-02-19] VITALS (7 sets, daily range): BP systolic 108–133; BP diastolic 53–84
--- NOTE | 2017-02-19 06:54 | Progress Note ---
Subjective General he patient is a 76-year-old white male with a significant past medical history of atrial fib/flutter, aortic valve disease, CHF, hypercholesterolemia, BPH, who presented to [facility] emergency department on the day of admission secondary to complaints of redness, swelling, warmth, and pain of the left leg of approximately 3 days duration. [facility] ER evaluation was consistent with cellulitis of left lower leg. Secondary to the above, the patient was admitted by Luigi Zaragoza M.D. for further evaluation and treatment. C/O nausea and vomiting he thinks pills made him, no abd pain but sorness, no BM , no fever or chills, no chest pain, no dyspnea, pain in left leg is controlled Review of system: GI: Positive for nausea and vomiting negative for abdominal pain no bowel movements Constitutional: Negative for fever or chills Respiratory: Negative for chest pain dougherty dyspnea Physical Exam Vital Signs / I&Os Vital Signs Date Time Temp Pulse Resp B/P Pulse O2 O2 Flow FiO2 Ox Delivery Rate 02/19 1044 98.1 92 20 108/64 94 Room Air 02/19 0823 93 02/19 0647 98.4 117 120 124/74 95 Room Air 02/19 0306 98 02/19 0235 98.8 94 19 124/66 96 Room Air 02/19 0125 133/84 02/19 0053 105 02/18 2243 Room Air 02/18 2224 99.9 100 22 126/55 96 Room Air 02/18 2210 106 I&O 02/19 0000 02/18 1600 02/18 0800 Intake Total Output Total 50 Balance -50 General Appearance Mild distress Lungs Clear to auscultation Cardiovascular Regular rate and rhythm, Normal S1 and S2, No murmurs, gallops, rubs Abdomen Normal bowel sounds, Soft, No tenderness Extremities erythema and tenderness edema in left leg with big blister in rai area Skin No Rashes (rash as above) Psych/Mental Status Mental status normal LAB Results Laboratory Tests 02/19 02/19 02/19 02/18 0530 0530 0530 2135 Chemistry Plasma Sodium (136 - 145 mmol/L) 140 Plasma Potassium (3.5 - 5.1 mmol/L) 3.1 Plasma Chloride (98 - 107 mmol/L) 102 CO2 (Enzymatic) (21 - 32 mmol/L) 27 BUN (7 - 18 mg/dL) 12 Creatinine (0.6 - 1.3 mg/dL) 0.6 Est GFR ( Amer) (mL/min) >60 Est GFR (Non-Af Amer) (mL/min) >60 Glucose (70 - 110 mg/dL) 136 Hemoglobin A1c % (4.5 - 6.2 %) 6.3 Plasma Calcium (8.5 - 10.1 mg/dL) 7.9 Plasma Magnesium (1.8 - 2.4 mg/dL) 2.1 Total Bilirubin (0.0 - 1.0 mg/dL) 1.3 AST (15 - 37 U/L) 28 ALT (12 - 78 U/L) 35 Alkaline Phosphatase (46 - 116 U/L) 71 Creatine Kinase (24 - 260 U/L) 244 368 CK-MB (CK-2) (0.5 - 3.2 ng/mL) 1.9 CK/CKMB % Calc (0.0 - 4.0 %) 0.5 Total Protein (6.4 - 8.2 g/dL) 5.7 Albumin (3.3 - 5.0 g/dL) 2.6 Coagulation INR (0.8 - 1.2) 1.5 Hematology WBC (4.5 - 11.5 K/uL) 19.5 RBC (4.50 - 5.90 M/uL) 4.50 Hgb (13.5 - 17.5 gm/dL) 13.2 Hct (41.0 - 53.0 %) 40.1 MCV (80 - 100 fL) 89 MCH (26 - 34 pg) 29 RDW (11.6 - 14.8 %) 14.2 Neut % (Auto) (50 - 75 %) 79 Lymph % (Auto) (25 - 40 %) 13 [place] % (Auto) (3 - 14 %) 1 Eos % (Auto) (0 - 4 %) 0 Baso % (Auto) (0 - 2 %) 0 Band Neutrophils % (0 - 8 %) 7 Metamyelocytes % (0 - 1 %) 0 Myelocytes (0 - 1 %) 0 Other Cell Type RARE GIANT PLATELET Plt Count, EDTA (150 - 400 K/uL) 123 PUBS MCHC (31 - 37 g/dL) 33 02/18 02/18 02/18 02/18 1713 1649 1613 1613 Chemistry Lactic Acid (0.4 - 2.0 mmol/L) 1.5 Creatine Kinase (24 - 260 U/L) 539 CK-MB (CK-2) (0.5 - 3.2 ng/mL) 2.9 CK/CKMB % Calc (0.0 - 4.0 %) 0.5 Procalcitonin (0 - 0.5 ng/mL) 0.6 Urines Urine Color KRISTIE Urine Appearance CLEAR Urine pH (5.0 - 8.0) 6.0 Ur Specific [place] (1.010 - 1.030) 1.020 Urine Protein (NEGATIVE) TRACE Urine Ketones (NEGATIVE) 1+ Urine Blood (NEGATIVE) 1+ Urine Nitrite (NEGATIVE) NEGATIVE Urine Bilirubin (NEGATIVE) NEGATIVE Urine Urobilinogen (0.2 - 1.0 EU/dL) 0.2 Ur Leukocyte Esterase (NEGATIVE) NEGATIVE Urine RBC (0 - 1 rbc/hpf) 0-1 Urine WBC (0 - 1 wbc/hpf) 1-3 Ur Epithelial Cells (0 - 5 EPI/hpf) RARE Urine Bacteria (NONE SEEN) MODERATE (2+ TO 3+) Urine Glucose (NEGATIVE) NEGATIVE Urine Comment CULTURE INDICATED 02/18 02/18 02/18 1613 1613 1613 Chemistry Plasma Sodium (136 - 145 mmol/L) 136 Plasma Potassium (3.5 - 5.1 mmol/L) 3.8 Plasma Chloride (98 - 107 mmol/L) 98 CO2 (Enzymatic) (21 - 32 mmol/L) 25 BUN (7 - 18 mg/dL) 16 Creatinine (0.6 - 1.3 mg/dL) 0.8 Est GFR ( Amer) (mL/min) >60 Est GFR (Non-Af Amer) (mL/min) >60 Glucose (70 - 110 mg/dL) 123 Plasma Calcium (8.5 - 10.1 mg/dL) 9.0 Total Bilirubin (0.0 - 1.0 mg/dL) 1.8 AST (15 - 37 U/L) 37 ALT (12 - 78 U/L) 43 Alkaline Phosphatase (46 - 116 U/L) 76 C-Reactive Protein (0.0 - 0.9 mg/dL) 24.6 B-Natriuretic Peptide (5 - 100 pg/ml) 362 Total Protein (6.4 - 8.2 g/dL) 7.5 Albumin (3.3 - 5.0 g/dL) 3.1 Coagulation INR (0.8 - 1.2) 1.5 APTT (24 - 34 SECONDS) 40 D-Dimer, Quantitative (0.27 - 0.52 ug/mLFEU) 2.24 Hematology WBC (4.5 - 11.5 K/uL) 21.9 RBC (4.50 - 5.90 M/uL) 4.95 Hgb (13.5 - 17.5 gm/dL) 14.6 Hct (41.0 - 53.0 %) 43.5 MCV (80 - 100 fL) 88 MCH (26 - 34 pg) 30 RDW (11.6 - 14.8 %) 14.0 Neut % (Auto) (50 - 75 %) 66 Lymph % (Auto) (25 - 40 %) 12 [place] % (Auto) (3 - 14 %) 4 Eos % (Auto) (0 - 4 %) 1 Baso % (Auto) (0 - 2 %) 0 Band Neutrophils % (0 - 8 %) 17 Metamyelocytes % (0 - 1 %) 0 Myelocytes (0 - 1 %) 0 Other Cell Type 0 Plt Count, EDTA (150 - 400 K/uL) 129 RBC Morphology (3415 A) NORMOCHROMIC PUBS MCHC (31 - 37 g/dL) 34 ESR Westergren (0 - 20 mm/hr) 25 Microbiology Date/Time Procedure - Status Source Growth 02/18 2340 MRSA Screen - RECD NASAL 02/18 1955 Anaerobic Culture - RES BODY FLUID 02/18 1955 Body Fluid Culture - RES BODY FLUID 02/18 1955 Gram Stain - RES BODY FLUID 02/18 1715 Blood Culture - RECD BLOOD 02/18 1713 Urine Culture - RECD URINE CC 02/18 1649 Blood Culture - RECD BLOOD Assessment and Plan Problem List 1. Cellulitis of leg, left Plan continue Vanco and Zosyn, will do [facility] consult 2. Atrial fibrillation Status Chronic Onset Date Unknown Plan rate controlled 3. Aortic valve disease Status Chronic Onset Date Unknown Plan will monitor INR 4. Coronary artery disease Status Chronic Onset Date Unknown Plan controlled, contiue current mamagement 5. Hypertension Status Chronic Onset Date Unknown Plan controlled contiue current meds
[2017-02-20] VITALS (7 sets, daily range): BP systolic 85–138; BP diastolic 44–73
--- NOTE | 2017-02-20 07:37 | Progress Note ---
Subjective General Note Date: February 20, 2017 Admission Date: February 18, 2017 Hospital Day: 3 PCP: Kar Silver M.D. Status: Inpatient, ACU Advanced Directive: FULL CODE Room: 306 Admission History: The patient is a 76-year-old white male with a significant past medical history of atrial fib/flutter, aortic valve disease, CHF, hypercholesterolemia, BPH, who presented to [facility] emergency department on the day of admission secondary to complaints of redness, swelling, warmth, and pain of the left leg of approximately 3 days duration. [facility] ER evaluation was consistent with cellulitis of left lower leg. Secondary to the above, the patient was admitted by Luigi Zaragoza M.D. for further evaluation and treatment. For other history present illness, past medical history, family history, social history, review of systems, and admission physical examination please see the patient's history and physical examination and ER visit note in the patient's medical record. Subjective: The patient states symptoms are stable to slightly improved. Persistent left lower extremity pain but better than admission. Swelling stable to improved Patient requests: No specific Medications and Allergies Medications Current Medications Sig/Amos Start time Last Medication Dose Route Stop Time Status Admin Clarify Med Order See Dose 0830 02/20 0830 AC Insts (1) IV 02/20 0859 Atorvastatin Calcium 40 MG QPM 02/19 1800 AC 02/19 PO 1926 Cyanocobalamin 2,500 MCG DAILY 02/19 0900 AC 02/19 PO 0823 Finasteride 5 MG DAILY 02/19 0900 AC 02/19 PO 0823 Pantoprazole Sodium 40 MG DAILY 02/19 0900 AC 02/19 IV 0823 Tamsulosin HCl 0.4 MG DAILY 02/19 0900 AC 02/19 PO 0823 Vancomycin HCl/ 200 ML Q12HR 02/19 0900 AC 02/19 Dextrose IV 2056 Promethazine HCl See Dose Q4H PRN 02/19 0700 AC 02/19 Insts (2) IV 1247 Piperacillin/ 50 ML Q6H 02/19 0400 AC 02/20 Tazobactam/Dextrose IV 0403 Carvedilol 3.125 MG BIDWC 02/19 0015 AC 02/19 PO 1926 Vancomycin HCl See Dose .[PER PHARMACY] 02/19 0015 AC Insts (3) IV Warfarin Sodium 2.5 MG DAILY@1400 02/19 0015 AC 02/19 PO 1405 Acetaminophen 650 MG Q6H PRN 02/18 2130 AC PO Al Hydrox/Mg Hydrox/ 15 ML Q1H PRN 02/18 2130 AC 02/19 Simethicone PO 0053 Atropine Sulfate 0.5 MG Q3MIN PRN 02/18 2130 AC IV Docusate Sodium 250 MG BID PRN 02/18 2130 AC PO Hydromorphone HCl 1 MG Q1H PRN 02/18 2130 AC IV Lidocaine HCl See Dose ONCE PRN 02/18 2130 AC Insts (4) IV Magnesium Hydroxide 10 ML DAILY PRN 02/18 2130 AC PO Morphine Sulfate 2 MG Q3M PRN 02/18 2130 AC IV Nitroglycerin 0.4 MG Q5M PRN 02/18 2130 AC SL Ondansetron HCl 4 MG Q6H PRN 02/18 2130 AC 02/19 IV 0333 Sodium Chloride 1,000 ML ASDIRECTED 02/18 2130 AC 02/19 IV 2204 Dose Instructions: (1)Clarify Med Order: VANCOMYCIN TROUGH (2)Promethazine HCl: 12.5 - 25 MG (3)Vancomycin HCl: DOSING PER PHARMACY (4)Lidocaine HCl: 1.5 MG/KG Allergies Coded Allergies: NKA (02/18/17) Reconcile Medications Scheduled Medications Carvedilol (Carvedilol 6.25 MG) 6.25 MG TAB 6.25 MG PO DAILY (Reported) Cholecalciferol (Vitamin D-3 1000 Units Tablet) 1,000 UNIT TAB 1,000 UNITS PO DAILY (Reported) Finasteride (Finasteride 5 MG) 5 MG TAB 5 MG PO DAILY (Reported) Furosemide (Furosemide 40 MG) 40 MG TAB 40 MG PO PRN (Reported) Hydrocodone-Acetaminophen 7.5/325 MG ([place] 7.5/325 MG) 1 TAB TAB 1 TAB PO PRN for pain (Reported) [PITAVASTATIN CALCIUM] 1 MG TAB 1 MG PO DAILY (Reported) Potassium Chloride (Potassium Chloride ER - 10 Meq) 10 MEQ TAB 10 MEQ PO DAILY (Reported) Tamsulosin HCl 0.4 MG CAP 0.4 MG PO DAILY (Reported) Warfarin Sodium (Coumadin) 1 MG TAB 1 MG PO DAILY (Reported) Miscellaneous Medications [VITAMIN B 12] 2,500 MCG (Reported) Physical Exam Vital Signs / I&Os Vital Signs Date Time Temp Pulse Resp B/P Pulse O2 O2 Flow FiO2 Ox Delivery Rate 02/20 0638 98.6 102 16 127/73 97 Nasal 2.0 Cannula 02/20 0205 98.4 96 25 138/69 98 Nasal 2.0 Cannula 02/196 99.0 86 22 124/64 97 Room Air 02/192 98 02/19 1928 Room Air 02/19 1926 92 02/19 1822 98.8 89 16 117/73 95 02/19 1431 99.0 83 18 128/53 95 02/19 1044 98.1 92 20 108/64 94 Room Air 02/19 0823 93 I&O 02/20 0000 02/19 1600 02/19 0800 Intake Total 534 90 753 Output Total 300 750 475 Balance 234 -660 278 General Appearance Alert, Oriented X3, Cooperative, No acute distress Lungs Clear to auscultation Cardiovascular Normal S1 and S2, irregular rhythm, rate controlled Abdomen Normal bowel sounds, Soft, No tenderness Extremities No cyanosis, No clubbing, left lower extremity shows persistent edema and erythema. Not much improved. Erythematous area improving. Persistent drainage from blister sites Neurological Cranial nerves intact, No lateralizing signs Psych/Mental Status Mental status normal, Mood normal LAB Results Laboratory Tests 02/20 02/20 02/20 02/19 0425 0425 0400 1326 Chemistry Plasma Sodium (136 - 145 mmol/L) 143 Plasma Potassium (3.5 - 5.1 mmol/L) 3.7 Plasma Chloride (98 - 107 mmol/L) 106 CO2 (Enzymatic) (21 - 32 mmol/L) 27 BUN (7 - 18 mg/dL) 10 Creatinine (0.6 - 1.3 mg/dL) 0.7 Est GFR ( Amer) (mL/min) >60 Est GFR (Non-Af Amer) (mL/min) >60 Glucose (70 - 110 mg/dL) 131 Plasma Calcium (8.5 - 10.1 mg/dL) 8.4 Creatine Kinase (24 - 260 U/L) 199 C-Reactive Protein (0.0 - 0.9 mg/dL) 26.8 Coagulation INR (0.8 - 1.2) 2.3 Hematology WBC (4.5 - 11.5 K/uL) 14.6 Cancelled RBC (4.50 - 5.90 M/uL) 4.56 Cancelled Hgb (13.5 - 17.5 gm/dL) 13.2 Cancelled Hct (41.0 - 53.0 %) 40.4 Cancelled MCV (80 - 100 fL) 89 Cancelled MCH (26 - 34 pg) 29 Cancelled RDW (11.6 - 14.8 %) 14.3 Cancelled Neut % (Auto) (50 - 75 %) 87 Lymph % (Auto) (25 - 40 %) 13 [place] % (Auto) (3 - 14 %) 0 Eos % (Auto) (0 - 4 %) 0 Baso % (Auto) (0 - 2 %) 0 Band Neutrophils % (0 - 8 %) 0 Metamyelocytes % (0 - 1 %) 0 Myelocytes (0 - 1 %) 0 Other Cell Type 0 Plt Count, EDTA (150 - 400 K/uL) 156 Cancelled Anisocytosis (manual) 1+ PUBS MCHC (31 - 37 g/dL) 33 Cancelled Assessment and Plan Problem List 1. Cellulitis of leg, left Plan -Status improved -Decreased erythema/warmth of left lower leg -Improved WBC -Afebrile -Await cultures -Continue with vancomycin/Zosyn -Monitor -Anticipated discharge 2-3 days 2. Atrial fibrillation Status Chronic Onset Date Unknown Plan -Stable -Continue present therapy -Heart rate controlled -Continue anticoagulation -INR improved at 2.3 3. Chronic anticoagulation Status Chronic Onset Date Unknown Plan -INR improved -INR 2.3 today -Continue present therapy 4. Hypertension Status Chronic Onset Date Unknown Plan -Blood pressure well controlled -BP 106/50 mmHg -Low-salt diet -Continue present therapy -Monitor 5. BPH (benign prostatic hyperplasia) Status Chronic Onset Date Unknown Plan -Stable -Continue present therapy 6. Hyperlipidemia Status Chronic Onset Date Unknown Plan -Continue present therapy -Outpatient follow-up 7. Aortic valve disease Status Chronic Onset Date Unknown Plan -Stable -No further evaluation 8. Coronary artery disease Status Chronic Onset Date Unknown Plan -No history of chest pain -No further evaluation at this time 9. Rhabdomyolysis Status Acute Onset Date Unknown Plan -Resolved -CPK 199 10. UTI (urinary tract infection) Status Acute Onset Date Unknown Plan -Admission UA suggestive of UTI -Follow up urine C&S negative for growth -Continue antimicrobials for treatment of cellulitis no further need for antimicrobials for suspected UTI Current status: Fair, improved Anticipated discharge date: Anticipated discharge in 2-3 days Anticipated discharge placement: Home Patient care time: Time in chart review, patient interview, physical exam, CPOE, and care documentation: 35 mins Visit to patient today: 2 Complexity of care: High DVT prophylaxis: Coumadin E&M Codes Rounding: Inpt-High/[id number]
[2017-02-20] MEDS ORDERED: NORCO1 TA2 PO (10:36)
[2017-02-21] VITALS (11 sets, daily range): BP systolic 100–127; BP diastolic 44–80
--- NOTE | 2017-02-21 07:30 | Progress Note ---
Subjective General Note Date: February 21, 2017 Admission Date: February 18, 2017 Hospital Day: 4 PCP: Kar Silver M.D. Status: Inpatient, ACU Advanced Directive: FULL CODE Room: 306 Admission History: The patient is a 76-year-old white male with a significant past medical history of atrial fib/flutter, aortic valve disease, CHF, hypercholesterolemia, BPH, who presented to [facility] emergency department on the day of admission secondary to complaints of redness, swelling, warmth, and pain of the left leg of approximately 3 [address] [facility] ER evaluation was consistent with cellulitis of left lower leg. Secondary to the above, the patient was admitted by Luigi Zaragoza M.D. for further evaluation and treatment. For other history present illness, past medical history, family history, social history, review of systems, and admission physical examination please see the patient's history and physical examination and ER visit note in the patient's medical record. Subjective: The patient states he is doing fairly well today. Persistent swelling redness of left lower leg with improvement since admission. Patient requests: None Medications and Allergies Medications Current Medications Sig/Amos Start time Last Medication Dose Route Stop Time Status Admin Clarify Med Order See Dose 1030 02/21 1030 AC Insts (1) IV Pantoprazole Sodium 40 MG 0600 02/21 0600 AC 02/21 Sesquihydrate PO 0538 Vancomycin HCl/ 200 ML 0300,1100,1900 02/21 0300 AC 02/21 Dextrose IV 0310 Acetaminophen/ See Dose Q6H PRN 02/20 1230 AC 02/20 Hydrocodone Bitart Insts (2) PO 1842 Atorvastatin Calcium 40 MG QPM 14 1800 AC 02/20 PO 1840 Cyanocobalamin 2,500 MCG DAILY 02/19 0900 AC 02/20 PO 0958 Finasteride 5 MG DAILY 02/19 0900 AC 02/20 PO 0957 Tamsulosin HCl 0.4 MG DAILY 02/19 0900 AC 02/20 PO 0958 Promethazine HCl See Dose Q4H PRN 02/19 0700 AC 02/19 Insts (3) IV 1247 Piperacillin/ 50 ML Q6H 02/19 0400 AC 02/21 Tazobactam/Dextrose IV 0445 Carvedilol 3.125 MG BIDWC 02/19 0015 AC 06/15 PO 1840 Vancomycin HCl See Dose .[PER PHARMACY] 02/19 15 AC Insts (4) IV Warfarin Sodium 2.5 MG DAILY@1400 02/19 001 AC 02/20 PO 1324 Acetaminophen 650 MG Q6H PRN 02/18 2130 AC PO Al Hydrox/Mg Hydrox/ 15 ML Q1H PRN 02/18 2130 AC 02/19 Simethicone PO 0053 Atropine Sulfate 0.5 MG Q3MIN PRN 02/18 2130 AC IV Docusate Sodium 250 MG BID PRN 02/18 2130 AC PO Hydromorphone HCl 1 MG Q1H PRN 02/18 2130 AC IV Lidocaine HCl See Dose ONCE PRN 02/18 2130 AC Insts (5) IV Magnesium Hydroxide 10 ML DAILY PRN 02/18 2130 AC PO Morphine Sulfate 2 MG Q3M PRN 02/18 2130 AC IV Nitroglycerin 0.4 MG Q5M PRN 02/18 2130 AC SL Ondansetron HCl 4 MG Q6H PRN 02/18 2130 AC 02/19 IV 0333 Sodium Chloride 1,000 ML ASDIRECTED 02/18 2130 AC 02/20 IV 2123 Dose Instructions: (1)Clarify Med Order: VANCOMYCIN TROUGH (2)Acetaminophen/Hydrocodone Bitart: 1 - 2 TABLETS (3)Promethazine HCl: 12.5 - 25 MG (4)Vancomycin HCl: DOSING PER PHARMACY (5)Lidocaine HCl: 1.5 MG/KG Allergies Coded Allergies: NKA (02/18/17) Reconcile Medications Scheduled Medications Carvedilol (Carvedilol 6.25 MG) 6.25 MG TAB 6.25 MG PO DAILY (Reported) Cholecalciferol (Vitamin D-3 1000 Units Tablet) 1,000 UNIT TAB 1,000 UNITS PO DAILY (Reported) Finasteride (Finasteride 5 MG) 5 MG TAB 5 MG PO DAILY (Reported) Furosemide (Furosemide 40 MG) 40 MG TAB 40 MG PO PRN (Reported) Hydrocodone-Acetaminophen 7.5/325 MG ([place] 7.5/325 MG) 1 TAB TAB 1 TAB PO PRN for pain (Reported) [PITAVASTATIN CALCIUM] 1 MG TAB 1 MG PO DAILY (Reported) Potassium Chloride (Potassium Chloride ER - 10 Meq) 10 MEQ TAB 10 MEQ PO DAILY (Reported) Tamsulosin HCl 0.4 MG CAP 0.4 MG PO DAILY (Reported) Warfarin Sodium (Coumadin) 1 MG TAB 1 MG PO DAILY (Reported) Miscellaneous Medications [VITAMIN B 12] 2,500 MCG (Reported) Physical Exam Vital Signs / I&Os Vital Signs Date Time Temp Pulse Resp B/P Pulse O2 O2 Flow FiO2 Ox Delivery Rate 02/21 0545 98.2 84 18 127/80 96 Room Air 02/21 0521 84 16 112/63 97 Room Air 02/21 0418 95 18 112/73 96 Room Air 02/21 0323 83 16 123/71 95 Room Air 02/21 0219 97.9 77 18 124/77 98 Room Air 02/21 0118 84 16 111/66 96 Room Air 02/21 0010 77 16 102/62 98 Room Air 02/20 2342 76 16 101/58 97 Room Air 02/20 2152 98.4 86 15 97/65 100 Room Air 02/20 2129 Room Air 02/20 1855 98.2 95 16 85/44 98 Room Air 02/20 1840 99 02/20 1456 97.9 90 16 94/70 98 02/20 1021 98.6 101 16 106/50 97 Room Air 02/20 0958 87 02/20 0811 2.0 I&O 02/21 0000 02/20 1600 02/20 0800 Intake Total 2494 90 632 Output Total 375 625 750 Balance 2119 -535 -118 General Appearance Alert, Oriented X3, Cooperative, No acute distress Lungs Clear to auscultation Cardiovascular Normal S1 and S2, Irregular rhythm, mild tachycardia Abdomen Normal bowel sounds, Soft, No tenderness Extremities No cyanosis, No clubbing, edema lower extremity unchanged. Decreased erythema. Decreased warmth. bulla unchanged Neurological Cranial nerves intact, No lateralizing signs Psych/Mental Status Mental status normal, Mood normal LAB Results Laboratory Tests 02/21 02/21 02/20 0522 0522 0840 Chemistry Plasma Sodium (136 - 145 mmol/L) 142 Plasma Potassium (3.5 - 5.1 mmol/L) 3.6 Plasma Chloride (98 - 107 mmol/L) 105 CO2 (Enzymatic) (21 - 32 mmol/L) 26 BUN (7 - 18 mg/dL) 14 Creatinine (0.6 - 1.3 mg/dL) 0.9 Est GFR ( Amer) (mL/min) >60 Est GFR (Non-Af Amer) (mL/min) >60 Glucose (70 - 110 mg/dL) 131 Plasma Calcium (8.5 - 10.1 mg/dL) 8.2 B-Natriuretic Peptide (5 - 100 pg/ml) 384 Coagulation INR (0.8 - 1.2) 2.9 Hematology WBC (4.5 - 11.5 K/uL) 12.9 RBC (4.50 - 5.90 M/uL) 4.35 Hgb (13.5 - 17.5 gm/dL) 12.8 Hct (41.0 - 53.0 %) 38.4 MCV (80 - 100 fL) 88 MCH (26 - 34 pg) 29 RDW (11.6 - 14.8 %) 14.5 Neut % (Auto) (50 - 75 %) 75 Lymph % (Auto) (25 - 40 %) 20 [place] % (Auto) (3 - 14 %) 1 Eos % (Auto) (0 - 4 %) 2 Baso % (Auto) (0 - 2 %) 0 Band Neutrophils % (0 - 8 %) 2 Metamyelocytes % (0 - 1 %) 0 Myelocytes (0 - 1 %) 0 Other Cell Type 0 Plt Count, EDTA (150 - 400 K/uL) 170 Hypochromic-Microcytic 1+ PUBS MCHC (31 - 37 g/dL) 33 Toxicology Vancomycin Trough (10.0 - 20.0 ug/mL) 6.5 Assessment and Plan Problem List 1. Cellulitis of leg, left Plan -Continued slow improvement -Afebrile -Improving WBC -Physical examination shows mild improvement -Bulla culture and sensitivity shows no growth -Continue present therapy 2. Atrial fibrillation Status Chronic Onset Date Unknown Plan -Heart rate slightly increased -Monitor -Adjustments in rate modifying agents as necessary -Continue anticoagulation 3. Chronic anticoagulation Status Chronic Onset Date Unknown Plan -INR 2.9 -Continue present Coumadin dosage with possible adjustments secondary to borderline elevated INR -Monitor INR daily 4. Hypertension Status Chronic Onset Date Unknown Plan -Blood pressure well controlled -Patient with slightly low blood pressure yesterday -Continue present therapy -Low-salt diet -BP this a.m. 127/80 mmHg 5. Rhabdomyolysis Status Acute Onset Date Unknown Plan -Resolved 6. Lumbar disc disease Status Chronic Onset Date Unknown Plan -Persistent low back pain -Monitor Current status: Fair, improved Anticipated discharge date: Anticipated discharge 2-3 days Anticipated discharge placement: Home Patient care time: Time in chart review, patient interview, physical exam, CPOE, and care documentation: 35 mins Visit to patient today: 1 Complexity of care: High DVT prophylaxis: Coumadin E&M Codes Rounding: Inpt-High/22830
[2017-02-22 02:40] VITALS: BP 149/73
[2017-02-22 06:32] VITALS: BP 134/99
--- NOTE | 2017-02-22 07:15 | Progress Note ---
Subjective General Note Date: February 22, 2017 Admission Date: February 18, 2017 Hospital Day: 5 PCP: Kar Silver M.D. Status: Inpatient, ACU Advanced Directive: FULL CODE Room: 306 Admission History: The patient is a 76-year-old white male with a significant past medical history of atrial fib/flutter, aortic valve disease, CHF, hypercholesterolemia, BPH, who presented to [facility] emergency department on the day of admission secondary to complaints of redness, swelling, warmth, and pain of the left leg of approximately 3 days duration. [facility] ER evaluation was consistent with cellulitis of left lower leg. Secondary to the above, the patient was admitted by Luigi Zaragoza M.D. for further evaluation and treatment. For other history present illness, past medical history, family history, social history, review of systems, and admission physical examination please see the patient's history and physical examination and ER visit note in the patient's medical record. Subjective: Patient states he is doing well at this time. Leg pain improved. Lower leg swelling improved. No complaints of chest pain or shortness of breath Patient requests: None Medications and Allergies Medications Current Medications Sig/Amos Start time Last Medication Dose Route Stop Time Status Admin Bisacodyl 10 MG Q24H PRN 02/21 1845 AC [place] Clarify Med Order See Dose 1030 16 1030 AC 02/21 Insts (1) IV 1030 Pantoprazole Sodium 40 MG 0600 02/21 0600 AC 02/21 Sesquihydrate PO 0538 Vancomycin HCl/ 200 ML 0300,1100,1900 02/21 0300 AC 02/22 Dextrose IV 0253 Acetaminophen/ See Dose Q6H PRN 02/20 1230 AC 02/22 Hydrocodone Bitart Insts (2) PO 0322 Atorvastatin Calcium 40 MG QPM 02/19 1800 AC 02/21 PO 1827 Cyanocobalamin 2,500 MCG DAILY 02/19 0900 AC 02/21 PO 0902 Finasteride 5 MG DAILY 02/19 0900 AC 02/21 PO 0902 Tamsulosin HCl 0.4 MG DAILY 02/19 0900 AC 02/21 PO 0902 Promethazine HCl See Dose Q4H PRN 02/19 0700 AC 02/19 Insts (3) IV 1247 Piperacillin/ 50 ML Q6H 02/19 0400 AC 06/17 Tazobactam/Dextrose IV 0317 Carvedilol 3.125 MG BIDWC 02/19 001 AC 02/21 PO 1827 Vancomycin HCl See Dose .[PER PHARMACY] 02/19 15 AC Insts (4) IV Warfarin Sodium 2.5 MG DAILY@1400 02/19 001 AC 02/21 PO 1436 Acetaminophen 650 MG Q6H PRN 02/18 2130 AC PO Al Hydrox/Mg Hydrox/ 15 ML Q1H PRN 02/18 2130 AC 02/19 Simethicone PO 0053 Atropine Sulfate 0.5 MG Q3MIN PRN 02/18 2130 AC IV Docusate Sodium 250 MG BID PRN 02/18 2130 AC PO Hydromorphone HCl 1 MG Q1H PRN 02/18 2130 AC IV Lidocaine HCl See Dose ONCE PRN 02/18 2130 AC Insts (5) IV Magnesium Hydroxide 10 ML DAILY PRN 02/18 2130 AC PO Morphine Sulfate 2 MG Q3M PRN 02/18 2130 AC IV Nitroglycerin 0.4 MG Q5M PRN 02/18 2130 AC SL Ondansetron HCl 4 MG Q6H PRN 02/18 2130 AC 02/19 IV 0333 Sodium Chloride 1,000 ML ASDIRECTED 02/18 2130 AC 02/20 IV 2123 Dose Instructions: (1)Clarify Med Order: VANCOMYCIN TROUGH (2)Acetaminophen/Hydrocodone Bitart: 1 - 2 TABLETS (3)Promethazine HCl: 12.5 - 25 MG (4)Vancomycin HCl: DOSING PER PHARMACY (5)Lidocaine HCl: 1.5 MG/KG Allergies Coded Allergies: NKA (02/18/17) Reconcile Medications Scheduled Medications Carvedilol (Carvedilol 6.25 MG) 6.25 MG TAB 6.25 MG PO DAILY (Reported) Cholecalciferol (Vitamin D-3 1000 Units Tablet) 1,000 UNIT TAB 1,000 UNITS PO DAILY (Reported) Finasteride (Finasteride 5 MG) 5 MG TAB 5 MG PO DAILY (Reported) Furosemide (Furosemide 40 MG) 40 MG TAB 40 MG PO PRN (Reported) Hydrocodone-Acetaminophen 7.5/325 MG ([place] 7.5/325 MG) 1 TAB TAB 1 TAB PO PRN for pain (Reported) [PITAVASTATIN CALCIUM] 1 MG TAB 1 MG PO DAILY (Reported) Potassium Chloride (Potassium Chloride ER - 10 Meq) 10 MEQ TAB 10 MEQ PO DAILY (Reported) Tamsulosin HCl 0.4 MG CAP 0.4 MG PO DAILY (Reported) Warfarin Sodium (Coumadin) 1 MG TAB 1 MG PO DAILY (Reported) Miscellaneous Medications [VITAMIN B 12] 2,500 MCG (Reported) Physical Exam Vital Signs / I&Os Vital Signs Date Time Temp Pulse Resp B/P Pulse O2 O2 Flow FiO2 Ox Delivery Rate 02/22 0632 98.2 79 20 134/99 98 Room Air 0.0 02/22 0240 98.8 81 20 149/73 96 Room Air 02/22 0100 Room Air 2.0 02/21 2308 98.2 88 20 111/53 96 Room Air 02/21 1850 98.2 92 18 126/65 96 Room Air 02/21 1827 76 02/21 1630 Room Air 02/21 1439 98.2 78 18 112/61 96 Room Air 02/21 1248 98.4 90 20 100/44 97 Room Air 02/21 0903 104 I&O 02/22 0000 02/21 1600 02/21 0800 Intake Total 300 1100 1197 Output Total 400 600 885 Balance -100 500 312 General Appearance Alert, Oriented X3, Cooperative, No acute distress Lungs Clear to auscultation Cardiovascular Normal S1 and S2, irregular rhythm, rate controlled Abdomen Normal bowel sounds, Soft Extremities No cyanosis, No clubbing, edema left lower leg improved. Persistent bulla with drainage noted. Erythema improved. Neurological Cranial nerves intact, No lateralizing signs Psych/Mental Status Mental status normal, Mood normal LAB Results Laboratory Tests 02/22 02/21 02/21 0511 1630 1040 Chemistry Plasma Sodium (136 - 145 mmol/L) 139 Plasma Potassium (3.5 - 5.1 mmol/L) 3.6 Plasma Chloride (98 - 107 mmol/L) 104 CO2 (Enzymatic) (21 - 32 mmol/L) 27 BUN (7 - 18 mg/dL) 11 Creatinine (0.6 - 1.3 mg/dL) 0.9 Est GFR ( Amer) (mL/min) >60 Est GFR (Non-Af Amer) (mL/min) >60 Glucose (70 - 110 mg/dL) 123 Plasma Calcium (8.5 - 10.1 mg/dL) 8.3 Coagulation INR (0.8 - 1.2) 3.3 Hematology WBC (4.5 - 11.5 K/uL) 13.9 RBC (4.50 - 5.90 M/uL) 4.52 Hgb (13.5 - 17.5 gm/dL) 13.3 Hct (41.0 - 53.0 %) 40.6 MCV (80 - 100 fL) 90 MCH (26 - 34 pg) 30 RDW (11.6 - 14.8 %) 14.2 Neut % (Auto) (50 - 75 %) 81 Lymph % (Auto) (25 - 40 %) 8 [place] % (Auto) (3 - 14 %) 6 Eos % (Auto) (0 - 4 %) 2 Baso % (Auto) (0 - 2 %) 0 Band Neutrophils % (0 - 8 %) 3 Metamyelocytes % (0 - 1 %) 0 Myelocytes (0 - 1 %) 0 Other Cell Type 0 Plt Count, EDTA (150 - 400 K/uL) 192 PUBS MCHC (31 - 37 g/dL) 33 Toxicology Vancomycin Trough (10.0 - 20.0 ug/mL) Cancelled 14.0 Assessment and Plan Problem List 1. Cellulitis of leg, left Plan -Continued slow improvement. -Mild persistent leukocytosis -Continue vancomycin/Zosyn -Surface cultures lower leg blisters unremarkable -Monitor 2. Atrial fibrillation Status Chronic Onset Date Unknown Plan -Stable -Heart rate controlled -Continue anticoagulation 3. Chronic anticoagulation Status Chronic Onset Date Unknown Plan -See above -INR slightly elevated at 3.3 -Decrease Coumadin to 2 mg by mouth daily -Daily INR 4. Hypertension Status Chronic Onset Date Unknown Plan -Blood pressure well controlled -BP 134/68 mmHg -Low-salt diet -Monitor 5. BPH (benign prostatic hyperplasia) Status Chronic Onset Date Unknown Plan -stable, not problematic -No further evaluation at this time 6. Lumbar disc disease Status Chronic Onset Date Unknown Plan -Stable -Persistent low back pain -Monitor 7. Rhabdomyolysis Status Acute Onset Date Unknown Plan -Resolved Current status: Fair, improved Anticipated discharge date: Anticipated discharge 2 days Anticipated discharge placement: Home Patient care time: Time in chart review, patient interview, physical exam, CPOE, and care documentation: 25 mins Visit to patient today: 1 Complexity of care: Moderate DVT prophylaxis: Coumadin E&M Codes Rounding: Inpt-Moderate/59964
[2017-02-22 10:17] VITALS: BP 134/68
[2017-02-22 14:57] VITALS: BP 126/58
[2017-02-22 18:27] VITALS: BP 107/66
[2017-02-22 22:19] VITALS: BP 117/60
[2017-02-23 02:44] VITALS: BP 140/89
[2017-02-23 06:44] VITALS: BP 147/85
--- NOTE | 2017-02-23 07:19 | Progress Note ---
Subjective General Note Date: February 23, 2017 Admission Date: February 18, 2017 Hospital Day: 6 PCP: Kar Silver M.D. Status: Inpatient, ACU Advanced Directive: FULL CODE Room: 306 Admission History: The patient is a 76-year-old white male with a significant past medical history of atrial fib/flutter, aortic valve disease, CHF, hypercholesterolemia, BPH, who presented to [facility] emergency department on the day of admission secondary to complaints of redness, swelling, warmth, and pain of the left leg of approximately 3 days duration. [facility] ER evaluation was consistent with cellulitis of left lower leg. Secondary to the above, the patient was admitted by Luigi Zaragoza M.D. for further evaluation and treatment. For other history present illness, past medical history, family history, social history, review of systems, and admission physical examination please see the patient's history and physical examination and ER visit note in the patient's medical record. Subjective: The patient states he is doing well today. Left leg shows improved edema. No significant warmth. Decreasing erythema. Patient requests: Patient requests something for anxiety Medications and Allergies Medications Current Medications Sig/Amos Start time Last Medication Dose Route Stop Time Status Admin Warfarin Sodium 2 MG DAILY@1400 02/22 1400 AC 02/22 PO 1401 Bisacodyl 10 MG Q24H PRN 02/21 1845 AC 02/22 UT 1401 Clarify Med Order See Dose 1030 16 1030 AC 02/22 Insts (1) IV 1030 Pantoprazole Sodium 40 MG 0600 02/21 0600 AC 02/23 Sesquihydrate PO 0524 Vancomycin HCl/ 200 ML 0300,1100,1900 02/21 0300 AC 02/23 Dextrose IV 0323 Acetaminophen/ See Dose Q6H PRN 02/20 1230 AC 02/22 Hydrocodone Bitart Insts (2) PO 1312 Atorvastatin Calcium 40 MG QPM / 1800 AC 02/22 PO 1818 Cyanocobalamin 2,500 MCG DAILY 02/19 0900 AC 02/22 PO 1010 Finasteride 5 MG DAILY 02/19 0900 AC 02/22 PO 1009 Tamsulosin HCl 0.4 MG DAILY 02/19 0900 AC 02/22 PO 1029 Promethazine HCl See Dose Q4H PRN 02/19 0700 AC 02/19 Insts (3) IV 1247 Piperacillin/ 50 ML Q6H 02/19 0400 AC 02/23 Tazobactam/Dextrose IV 0524 Carvedilol 3.125 MG BIDWC 02/19 001 AC 02/22 PO 1818 Vancomycin HCl See Dose .[PER PHARMACY] 02/19 15 AC Insts (4) IV Acetaminophen 650 MG Q6H PRN 02/18 2130 AC PO Al Hydrox/Mg Hydrox/ 15 ML Q1H PRN 02/18 2130 AC 02/19 Simethicone PO 0053 Atropine Sulfate 0.5 MG Q3MIN PRN 02/18 2130 AC IV Docusate Sodium 250 MG BID PRN 02/18 2130 AC 02/22 PO 181 Hydromorphone HCl 1 MG Q1H PRN 02/18 2130 AC IV Lidocaine HCl See Dose ONCE PRN 02/18 2130 AC Insts (5) IV Magnesium Hydroxide 10 ML DAILY PRN 02/18 2130 AC 02/22 PO 1040 Morphine Sulfate 2 MG Q3M PRN 02/18 2130 AC IV Nitroglycerin 0.4 MG Q5M PRN 02/18 2130 AC SL Ondansetron HCl 4 MG Q6H PRN 02/18 2130 AC 02/19 IV 0333 Sodium Chloride 1,000 ML ASDIRECTED 02/18 2130 AC 02/20 IV 212 Dose Instructions: (1)Clarify Med Order: VANCOMYCIN TROUGH (2)Acetaminophen/Hydrocodone Bitart: 1 - 2 TABLETS (3)Promethazine HCl: 12.5 - 25 MG (4)Vancomycin HCl: DOSING PER PHARMACY (5)Lidocaine HCl: 1.5 MG/KG Allergies Coded Allergies: NKA (02/18/17) Reconcile Medications Scheduled Medications Carvedilol (Carvedilol 6.25 MG) 6.25 MG TAB 6.25 MG PO DAILY (Reported) Cholecalciferol (Vitamin D-3 1000 Units Tablet) 1,000 UNIT TAB 1,000 UNITS PO DAILY (Reported) Finasteride (Finasteride 5 MG) 5 MG TAB 5 MG PO DAILY (Reported) Furosemide (Furosemide 40 MG) 40 MG TAB 40 MG PO PRN (Reported) Hydrocodone-Acetaminophen 7.5/325 MG ([place] 7.5/325 MG) 1 TAB TAB 1 TAB PO PRN for pain (Reported) [PITAVASTATIN CALCIUM] 1 MG TAB 1 MG PO DAILY (Reported) Potassium Chloride (Potassium Chloride ER - 10 Meq) 10 MEQ TAB 10 MEQ PO DAILY (Reported) Tamsulosin HCl 0.4 MG CAP 0.4 MG PO DAILY (Reported) Warfarin Sodium (Coumadin) 1 MG TAB 1 MG PO DAILY (Reported) Miscellaneous Medications [VITAMIN B 12] 2,500 MCG (Reported) Physical Exam Vital Signs / I&Os Vital Signs Date Time Temp Pulse Resp B/P Pulse O2 O2 Flow FiO2 Ox Delivery Rate 02/23 0644 97.5 78 16 147/85 96 Room Air 0.0 02/23 0244 98.6 88 16 140/89 96 Room Air 02/22 2219 97.9 77 17 117/60 97 Room Air 0.0 02/22 1827 98.2 85 18 107/66 99 Room Air 02/22 1818 102 02/22 1457 98.4 78 18 126/58 98 Room Air 02/22 1017 97.9 91 18 134/68 100 Room Air 0.0 02/22 1010 101 I&O 02/23 0000 02/22 1600 02/22 0800 Intake Total 785 480 550 Output Total 614 306 7071 Balance 135 -20 -500 General Appearance Alert, Oriented X3, Cooperative, No acute distress Lungs Clear to auscultation, Normal air movement Cardiovascular Normal S1 and S2, irregular rhythm, rate controlled Abdomen Normal bowel sounds, Soft Extremities No cyanosis, No clubbing, Decrease edema left lower extremity. Decreasing erythema. Persistent bulla status post rupture. Neurological Cranial nerves intact, No lateralizing signs Psych/Mental Status Mental status normal, Mood normal LAB Results Laboratory Tests 02/23 0525 Chemistry Plasma Sodium (136 - 145 mmol/L) 137 Plasma Potassium (3.5 - 5.1 mmol/L) 4.1 Plasma Chloride (98 - 107 mmol/L) 102 CO2 (Enzymatic) (21 - 32 mmol/L) 27 BUN (7 - 18 mg/dL) 9 Creatinine (0.6 - 1.3 mg/dL) 0.8 Est GFR ( Amer) (mL/min) >60 Est GFR (Non-Af Amer) (mL/min) >60 Glucose (70 - 110 mg/dL) 127 Plasma Calcium (8.5 - 10.1 mg/dL) 8.0 Coagulation INR (0.8 - 1.2) 3.6 Hematology WBC (4.5 - 11.5 K/uL) 15.4 RBC (4.50 - 5.90 M/uL) 4.64 Hgb (13.5 - 17.5 gm/dL) 13.4 Hct (41.0 - 53.0 %) 41.4 MCV (80 - 100 fL) 89 MCH (26 - 34 pg) 29 RDW (11.6 - 14.8 %) 14.6 Neut % (Auto) (50 - 75 %) Pending Lymph % (Auto) (25 - 40 %) Pending [place] % (Auto) (3 - 14 %) Pending Band Neutrophils % (0 - 8 %) Pending Plt Count, EDTA (150 - 400 K/uL) 194 PUBS MCHC (31 - 37 g/dL) 32 Assessment and Plan Problem List 1. Cellulitis of leg, left Plan -Physical examination shows improvement in cellulitis -Persistent leukocytosis which is slightly increased and chest today -No temperature elevation noted. -Continue present antimicrobial therapy -Monitor 2. Atrial fibrillation Status Chronic Onset Date Unknown Plan -Persistent atrial fibrillation -Rate controlled -Continue anticoagulation -Monitor 3. Chronic anticoagulation Status Chronic Onset Date Unknown Plan -INR elevated, 3.6 -Hold Coumadin -Monitor 4. Hypertension Status Chronic Onset Date Unknown Plan -Well-controlled -Low-salt diet -Monitor 5. BPH (benign prostatic hyperplasia) Status Chronic Onset Date Unknown Plan -Stable -Not problematic -Monitor 6. Lumbar disc disease Status Chronic Onset Date Unknown Plan -Stable -Intermittent use of narcotic analgesics -Monitor 7. Rhabdomyolysis Status Acute Onset Date Unknown Plan -Resolved Current status: Fair, improved Anticipated discharge date: Anticipated discharge 2 days Anticipated discharge placement: Home Patient care time: Time in chart review, patient interview, physical exam, CPOE, and care documentation: 25 mins Visit to patient today: 1 Complexity of care: Moderate DVT prophylaxis: Coumadin E&M Codes Rounding: Inpt-Moderate/72868
[2017-02-23 10:37] VITALS: BP 135/75
[2017-02-23 14:39] VITALS: BP 135/68
[2017-02-23 18:13] VITALS: BP 120/74
[2017-02-23 23:54] VITALS: BP 110/95
[2017-02-24 03:19] VITALS: BP 108/92
[2017-02-24 07:05] VITALS: BP 139/84
--- NOTE | 2017-02-24 07:28 | Progress Note ---
Subjective General Note Date: February 24, 2017 Admission Date: February 18, 2017 Hospital Day: 7 PCP: Kar Silver M.D. Status: Inpatient, ACU Advanced Directive: FULL CODE Room: 306 Admission History: The patient is a 76-year-old white male with a significant past medical history of atrial fib/flutter, aortic valve disease, CHF, hypercholesterolemia, BPH, who presented to [facility] emergency department on the day of admission secondary to complaints of redness, swelling, warmth, and pain of the left leg of approximately 3 days duration. [facility] ER evaluation was consistent with cellulitis of left lower leg. Secondary to the above, the patient was admitted by Luigi Zaragoza M.D. for further evaluation and treatment. For other history present illness, past medical history, family history, social history, review of systems, and admission physical examination please see the patient's history and physical examination and ER visit note in the patient's medical record. Subjective: The patient states he is doing well this a.m. Decreased leg pain. Decreased erythema of leg and swelling. Patient requests: None Medications and Allergies Medications Current Medications Sig/Amos Start time Last Medication Dose Route Stop Time Status Admin Warfarin Sodium 2 MG DAILY@1400 02/24 1400 AC PO Alprazolam See Dose Q8H PRN 02/23 1430 AC 02/23 Insts (1) PO 1530 Bisacodyl 10 MG Q24H PRN 02/21 1845 AC 02/22 MS 1401 Pantoprazole Sodium 40 MG 0600 02/21 0600 AC 02/24 Sesquihydrate PO 0529 Vancomycin HCl/ 200 ML 0300,1100,1900 02/21 0300 AC 02/24 Dextrose IV 0315 Acetaminophen/ See Dose Q6H PRN 15 1230 AC 02/22 Hydrocodone Bitart Insts (2) PO 1312 Atorvastatin Calcium 40 MG QPM / 1800 AC 02/23 PO 1700 Cyanocobalamin 2,500 MCG DAILY 02/19 0900 AC 02/23 PO 0921 Finasteride 5 MG DAILY 02/19 0900 AC 02/23 PO 0921 Tamsulosin HCl 0.4 MG DAILY 02/19 0900 AC 02/23 PO 0921 Promethazine HCl See Dose Q4H PRN 02/19 0700 AC 02/19 Insts (3) IV 1247 Piperacillin/ 50 ML Q6H 02/19 0400 AC 02/24 Tazobactam/Dextrose IV 0529 Carvedilol 3.125 MG BIDWC 02/19 0015 AC 02/23 PO 1700 Vancomycin HCl See Dose .[PER PHARMACY] 02/19 15 AC Insts (4) IV Acetaminophen 650 MG Q6H PRN 02/18 2130 AC PO Al Hydrox/Mg Hydrox/ 15 ML Q1H PRN 02/18 2130 AC 02/19 Simethicone PO 0053 Atropine Sulfate 0.5 MG Q3MIN PRN 02/18 2130 AC IV Docusate Sodium 250 MG BID PRN 02/18 2130 AC 02/23 PO 0921 Hydromorphone HCl 1 MG Q1H PRN 02/18 2130 AC IV Lidocaine HCl See Dose ONCE PRN 02/18 2130 AC Insts (5) IV Magnesium Hydroxide 10 ML DAILY PRN 02/18 2130 AC 02/23 PO 0921 Morphine Sulfate 2 MG Q3M PRN 02/18 2130 AC IV Nitroglycerin 0.4 MG Q5M PRN 02/18 2130 AC SL Ondansetron HCl 4 MG Q6H PRN 02/18 2130 AC 02/19 IV 0333 Sodium Chloride 1,000 ML ASDIRECTED 02/18 2130 AC 02/23 IV 1018 Dose Instructions: (1)Alprazolam: 0.25 - 0.5 MG (2)Acetaminophen/Hydrocodone Bitart: 1 - 2 TABLETS (3)Promethazine HCl: 12.5 - 25 MG (4)Vancomycin HCl: DOSING PER PHARMACY (5)Lidocaine HCl: 1.5 MG/KG Allergies Coded Allergies: NKA (02/18/17) Reconcile Medications Scheduled Medications Carvedilol (Carvedilol 6.25 MG) 6.25 MG TAB 6.25 MG PO DAILY (Reported) Cholecalciferol (Vitamin D-3 1000 Units Tablet) 1,000 UNIT TAB 1,000 UNITS PO DAILY (Reported) Finasteride (Finasteride 5 MG) 5 MG TAB 5 MG PO DAILY (Reported) Furosemide (Furosemide 40 MG) 40 MG TAB 40 MG PO PRN (Reported) Hydrocodone-Acetaminophen 7.5/325 MG ([place] 7.5/325 MG) 1 TAB TAB 1 TAB PO PRN for pain (Reported) [PITAVASTATIN CALCIUM] 1 MG TAB 1 MG PO DAILY (Reported) Potassium Chloride (Potassium Chloride ER - 10 Meq) 10 MEQ TAB 10 MEQ PO DAILY (Reported) Tamsulosin HCl 0.4 MG CAP 0.4 MG PO DAILY (Reported) Warfarin Sodium (Coumadin) 1 MG TAB 1 MG PO DAILY (Reported) Miscellaneous Medications [VITAMIN B 12] 2,500 MCG (Reported) Physical Exam Vital Signs / I&Os Vital Signs Date Time Temp Pulse Resp B/P Pulse O2 O2 Flow FiO2 Ox Delivery Rate 02/24 0705 98.4 84 21 139/84 99 Room Air 02/24 0659 2.0 02/24 0319 108/92 02/24 0248 97.3 18 Room Air 02/23 2354 97.5 71 18 110/95 95 Room Air 02/23 2353 0.0 02/23 1813 97.9 81 20 120/74 97 Room Air 02/23 1700 79 02/23 1607 Room Air 02/23 1439 98.2 80 20 135/68 99 Room Air 02/23 1037 98.8 84 20 135/75 98 02/23 0945 Room Air 0.0 02/23 0921 75 02/23 0749 Room Air I&O 02/24 0000 02/23 1600 02/23 0800 Intake Total 490 480 350 Output Total 1425 1600 1045 Balance -935 -1120 -695 General Appearance Alert, Oriented X3, Cooperative, No acute distress Lungs Clear to auscultation, Normal air movement Cardiovascular Normal S1 and S2, irregular rhythm, rate controlled Abdomen Normal bowel sounds, Soft, No tenderness Extremities No cyanosis, No clubbing, edema of left leg much improved., Decreased erythema. Neurological Cranial nerves intact, No lateralizing signs Psych/Mental Status Mental status normal, Mood normal LAB Results Laboratory Tests 02/24 02/23 0530 1030 Coagulation INR (0.8 - 1.2) 3.1 Hematology WBC (4.5 - 11.5 K/uL) 14.7 RBC (4.50 - 5.90 M/uL) 4.53 Hgb (13.5 - 17.5 gm/dL) 13.2 Hct (41.0 - 53.0 %) 40.2 MCV (80 - 100 fL) 89 MCH (26 - 34 pg) 29 RDW (11.6 - 14.8 %) 14.3 Neut % (Auto) (50 - 75 %) 80 Lymph % (Auto) (25 - 40 %) 16 [place] % (Auto) (3 - 14 %) 2 Eos % (Auto) (0 - 4 %) 2 Baso % (Auto) (0 - 2 %) 0 Band Neutrophils % (0 - 8 %) 0 Metamyelocytes % (0 - 1 %) 0 Myelocytes (0 - 1 %) 0 Other Cell Type 0 Plt Count, EDTA (150 - 400 K/uL) 205 PUBS MCHC (31 - 37 g/dL) 33 Toxicology Vancomycin Trough (10.0 - 20.0 ug/mL) 18.5 Microbiology Date/Time Procedure - Status Source Growth 02/23 1837 Blood Culture - CAN BLOOD Cancelled: Cancelled via OE: WRONG PT 02/23 1837 Blood Culture - CAN BLOOD Cancelled: Cancelled via OE: WRONG PT 02/23 1800 MRSA Screen - CAN NASAL Cancelled: Cancelled via OE: WRONG PT Assessment and Plan Problem List 1. Cellulitis of leg, left Plan -status much improved -afebrile, decreased erythema, decreased swelling -persistent leukocytosis but improved today -recheck CBC, CRP in a.m. -consider switch to oral medications and discharge in a.m. 2. Atrial fibrillation Status Chronic Onset Date Unknown Plan -rate controlled -continue anticoagulation -continue present rate control with Coreg 3. Chronic anticoagulation Status Chronic Onset Date Unknown Plan -stable -INR remains slightly elevated -begin Coumadin 2 mg by mouth daily tomorrow -outpatient follow-up with PCP 4. Hypertension Status Chronic Onset Date Unknown Plan -well-controlled -low salt diet -monitor 5. BPH (benign prostatic hyperplasia) Status Chronic Onset Date Unknown Plan -not problematic -continue present therapy 6. Lumbar disc disease Status Chronic Onset Date Unknown Plan -patient with persistent back pain -continue outpatient medication regimen -outpatient follow-up with PCP -patient wished to establish outpatient follow-up with local physician, will schedule at time of discharge 7. Rhabdomyolysis Status Acute Onset Date Unknown Plan -resolved Current status: Failure, improved Anticipated discharge date: Anticipated discharge in a.m. with improved status Anticipated discharge placement: Home Patient care time: Time in chart review, patient interview, physical exam, CPOE, and care documentation: 25 mins Visit to patient today: 1 Complexity of care: Moderate DVT prophylaxis: Coumadin E&M Codes Rounding: Inpt-Moderate/03035
[2017-02-24 10:29] VITALS: BP 121/79
[2017-02-24 14:30] VITALS: BP 135/86
[2017-02-24 18:35] VITALS: BP 112/78; BP 117/61
[2017-02-24 22:37] VITALS: BP 111/64
[2017-02-25 02:36] VITALS: BP 107/64
--- NOTE | 2017-02-25 05:32 | Progress Note ---
Subjective General Note Date: February 25, 2017 Admission Date: February 18, 2017 Hospital Day: 8 PCP: Kar Silver M.D. Status: Inpatient, ACU Advanced Directive: FULL CODE Room: 208 Admission History: This is a 76-year-old white male with a past medical history of atrial fib/ flutter, aortic valve disease, CHF, hypercholesterolemia, BPH, who originally presented to the [facility] emergency department with 3 days of worsening redness, swelling, warmth, and pain of the left leg. After further evaluation it was determined that patient had a cellulitis of left lower leg. Patient was admitted to the hospitalist service to treat the cellulitis with IV antibiotics. In addition it was determined that the patient was with rhabdomyolysis on admission; treatment was progressive fluid hydration. Other reported conditions at the time of admission included; atrial fibrillation with chronic anticoagulation, hypertension and chronic lower back pain. Patient said significant overall improvement in the left leg cellulitis. Patient has required IV antibiotics due to selection of antibiotic choices. Recent challenges included likely resistance to oral medication. For other history present illness, past medical history, family history, social history, review of systems, and admission physical examination please see the patient's history and physical examination and ER visit note in the patient's medical record. Subjective Patient is seen today at bedside. Patient had no acute overnight events. Patient complains of the left lower extremity pain and redness. Constitutional Denies: Chills. Respiratory Denies: SOB w/exertion, Hemoptysis. Physical Exam Vital Signs / I&Os Vital Signs Date Time Temp Pulse Resp B/P Pulse O2 O2 Flow FiO2 Ox Delivery Rate 02/25 0238 2.0 02/25 0236 97.3 102 16 107/64 100 Room Air 2.0 02/24 2310 2.0 02/24 2237 99.3 92 16 111/64 93 Room Air 0.0 02/24 1835 98.4 82 20 117/61 100 Room Air 2.0 02/24 1802 120 02/24 1542 Room Air 2.0 02/24 1430 97.5 84 20 135/86 100 Room Air 02/24 1029 98.4 94 21 121/79 97 Room Air 02/24 0845 97 Room Air 02/24 0823 111 02/24 0705 98.4 84 21 139/84 99 Room Air 02/24 0659 2.0 I&O 02/24 0800 02/24 1600 02/25 0000 Intake Total 1721 1160 1133 Output Total 2233 128 7015 Balance 646 335 -552 General Appearance Oriented X3, Cooperative HEENT EOMI Lungs Clear to auscultation Neck No JVD Abdomen Soft Skin left lower extremity with visualized erythematous change; swelling has significantly improved Neurological Normal speech, Normal tone Psych/Mental Status Mood normal LAB Results Laboratory Tests 02/25 02/25 0525 1045 Chemistry Plasma Sodium (136 - 145 mmol/L) 138 Plasma Potassium (3.5 - 5.1 mmol/L) 4.4 Plasma Chloride (98 - 107 mmol/L) 104 CO2 (Enzymatic) (21 - 32 mmol/L) 24 BUN (7 - 18 mg/dL) 27 Creatinine (0.6 - 1.3 mg/dL) 0.9 Est GFR ( Amer) (mL/min) >60 Est GFR (Non-Af Amer) (mL/min) >60 Glucose (70 - 110 mg/dL) 137 Plasma Calcium (8.5 - 10.1 mg/dL) 8.0 C-Reactive Protein (0.0 - 0.9 mg/dL) 4.5 Coagulation INR (0.8 - 1.2) 2.9 Hematology WBC (4.5 - 11.5 K/uL) 14.5 RBC (4.50 - 5.90 M/uL) 4.36 Hgb (13.5 - 17.5 gm/dL) 12.7 Hct (41.0 - 53.0 %) 39.0 MCV (80 - 100 fL) 90 MCH (26 - 34 pg) 29 RDW (11.6 - 14.8 %) 14.5 Neut % (Auto) (50 - 75 %) 78 Lymph % (Auto) (25 - 40 %) 12 [place] % (Auto) (3 - 14 %) 8 Eos % (Auto) (0 - 4 %) 1 Baso % (Auto) (0 - 2 %) 0 Band Neutrophils % (0 - 8 %) 1 Metamyelocytes % (0 - 1 %) 0 Myelocytes (0 - 1 %) 0 Other Cell Type 0 Plt Count, EDTA (150 - 400 K/uL) 212 PUBS MCHC (31 - 37 g/dL) 33 Toxicology Vancomycin Trough (10.0 - 20.0 ug/mL) 26.2 Assessment and Plan Problem List 1. Cellulitis of leg, left Plan The cellulitis in the left lower extremity is improving. Permit is slower than expected. Consider alternatives for infectious agent. Patient does respond to the current IV antibiotics. In anticipation for patient being discharged; starting Augmentin and Bactrim. Discontinue Zosyn and vancomycin. Recheck labs in the a.m. including the CRP and CBC, CMP. 2. Atrial fibrillation Status Chronic Onset Date Unknown Plan Patient with history of A. fib. Patient anticoagulated. Patient INR 2.9. No changes in the warfarin dose. Recheck pro time in the 3. Chronic anticoagulation Status Chronic Onset Date Unknown Plan Patient chronic anticoagulation. Warfarin for stroke choice this time; without change 4. Hypertension Status Chronic Onset Date Unknown Plan Blood pressure maintained current therapy Monitor 5. BPH (benign prostatic hyperplasia) Status Chronic Onset Date Unknown Plan Stable without change 6. Lumbar disc disease Status Chronic Onset Date Unknown Plan Long-standing back pain. Patient having difficult time with resting for prolonged periods due to increased back pain. Patient will follow up with his PCP as an outpatient. PCP follow-up locally is recommended. 7. Rhabdomyolysis Status Acute Onset Date Unknown Plan The rhabdomyolysis has resolved. Current status: Failure, improved Anticipated discharge date: Anticipated discharge in a.m. with improved status Anticipated discharge placement: Home Patient care time: Time in chart review, patient interview, physical exam, CPOE, and care documentation: 25 mins Visit to patient today: 1 Complexity of care: Moderate DVT prophylaxis: Coumadin E&M Codes Rounding: Inpt-Moderate/68067
[2017-02-25 07:01] VITALS: BP 110/56
[2017-02-25 10:00] VITALS: BP 102/82; BP 67/44
[2017-02-25 14:20] VITALS: BP 126/87
[2017-02-25 18:00] VITALS: BP 109/47
[2017-02-25 22:34] VITALS: BP 103/72
[2017-02-26 02:15] VITALS: BP 106/66
[2017-02-26 06:24] VITALS: BP 104/63
--- NOTE | 2017-02-26 06:24 | Progress Note ---
Subjective General Note Date: February 26, 2017 Admission Date: February 18, 2017 Hospital Day: 9 PCP: Kar Silver M.D. Status: Inpatient, ACU Advanced Directive: FULL CODE Room: 208 Admission History: This is a 76-year-old white male with a past medical history of atrial fib/ flutter, aortic valve disease, CHF, hypercholesterolemia, BPH, who originally presented to the [facility] emergency department with 3 days of worsening redness, swelling, warmth, and pain of the left leg. After further evaluation it was determined that patient had a cellulitis of left lower leg. Patient was admitted to the hospitalist service to treat the cellulitis with IV antibiotics. In addition it was determined that the patient was with rhabdomyolysis on admission; treatment was progressive. Improved the fluid hydration. In the pre -existing complaints of back pain, known A. fib on chronic anticoagulation. Patient was maintained appropriate therapy was instituted. Patient was maintained on adequate anticoagulation. Patient's blood pressures well controlled. The cellulitis in the left lower extremity had significant reduction. The swelling and lower extremity along with a erythematous changes did not completely resolve but improved. Patient maintained an elevated white blood cell count (12.4 down from 21.9 wbc) with a downward trend. Patient CRP remained elevated at 4.6 (down from 24.6). Patient has required IV antibiotics on admission. This was however changed to oral equivalents including Augmentin and Bactrim. Patient will remain on the oral antibiotic for the next 10 days. Patient should be in to see wound care clinic and primary care provider prior to the completion of the antibiotic. For other history present illness, past medical history, family history, social history, review of systems, and admission physical examination please see the patient's history and physical examination and ER visit note in the patient's medical record. Subjective Patient has no significant pain and lower extremity. Reports that he is able to walk and ambulate without difficulty. Patient reports that he is having regular bowel movements. Patient overall feels like he is getting better. Patient has a strong desire to go home. Patient states that he just does not sleep well on the hospital. Constitutional Denies: Fever, Chills. Eyes Denies: Vision Change, Eyelid Inflammation, Redness. Respiratory Denies: SOB w/exertion, Wheezing. Cardiovascular Denies: Chest Pain, Palpitations. Musculoskeletal Back Pain, Leg Pain, Foot Pain. Physical Exam Vital Signs / I&Os Vital Signs Date Time Temp Pulse Resp B/P Pulse O2 O2 Flow FiO2 Ox Delivery Rate 02/26 0344 2.0 02/26 0215 98.4 76 15 106/66 97 Nasal 2.0 Cannula 02/26 0104 Nasal 2.0 Cannula 02/25 2234 97.9 88 17 103/72 99 Nasal 2.0 Cannula 02/25 1800 97.5 60 20 109/47 98 Room Air 02/25 1727 96 02/25 1637 Nasal 2.0 Cannula 02/25 1420 98.2 97 18 126/87 100 Nasal 2.0 Cannula 02/25 1000 97.9 99 18 102/82 100 Nasal 2.0 Cannula 02/25 0815 116 02/25 0701 98.1 95 18 110/56 100 Room Air 2.0 02/25 0657 2.0 I&O 02/25 0800 02/25 1600 02/26 0000 Intake Total 278 028 7723 Output Total 550 300 800 Balance 337 290 799 General Appearance Oriented X3, Cooperative, No acute distress Lungs Clear to auscultation, Normal air movement Neck Supple, No JVD Cardiovascular irregular irregular, no murmurs Abdomen mildly distended, soft, nontender Extremities left lower extremity edema below the knee, leg is wrapped; minimal warmth Skin resolving cellulitis left lower extremity Psych/Mental Status Mood normal LAB Results Laboratory Tests 02/25 02/26 1045 0520 Chemistry Plasma Sodium (136 - 145 mmol/L) 140 Plasma Potassium (3.5 - 5.1 mmol/L) 4.7 Plasma Chloride (98 - 107 mmol/L) 106 CO2 (Enzymatic) (21 - 32 mmol/L) 24 BUN (7 - 18 mg/dL) 54 Creatinine (0.6 - 1.3 mg/dL) 1.7 Est GFR ( Amer) (mL/min) 50.87 Est GFR (Non-Af Amer) (mL/min) 41.97 Glucose (70 - 110 mg/dL) 113 Plasma Calcium (8.5 - 10.1 mg/dL) 8.1 Total Bilirubin (0.0 - 1.0 mg/dL) 0.5 AST (15 - 37 U/L) 24 ALT (12 - 78 U/L) 37 Alkaline Phosphatase (46 - 116 U/L) 59 C-Reactive Protein (0.0 - 0.9 mg/dL) 4.6 Total Protein (6.4 - 8.2 g/dL) 5.5 Albumin (3.3 - 5.0 g/dL) 2.3 Coagulation INR (0.8 - 1.2) 3.2 Hematology WBC (4.5 - 11.5 K/uL) 12.4 RBC (4.50 - 5.90 M/uL) 3.64 Hgb (13.5 - 17.5 gm/dL) 10.6 Hct (41.0 - 53.0 %) 32.2 MCV (80 - 100 fL) 88 MCH (26 - 34 pg) 29 RDW (11.6 - 14.8 %) 13.9 Gran % 78.8 Lymph % (Auto) (25 - 40 %) 16.7 [place] % (Auto) (3 - 14 %) 4.5 Plt Count, EDTA (150 - 400 K/uL) 213 PUBS MCHC (31 - 37 g/dL) 33 ESR Westergren (0 - 20 mm/hr) 62 Toxicology Vancomycin Trough (10.0 - 20.0 ug/mL) 26.2 Assessment and Plan Problem List 1. Cellulitis of leg, left Plan Cellulitis left lower extremity is resolving Antibiotics have been changed from IV to by mouth. Patient will continue with the by mouth Bactrim double strength 1 tab twice a day and the Augmentin 800 mg twice a day. All cultures have been without growth Patient follow-up to review the CRP and CBC. Today white count is down from previous day the CRP is up slightly from previously. Patient should return to wound care upon discharge. 2. Atrial fibrillation Status Chronic Onset Date Unknown Plan Patient with history of A. fib. Patient anticoagulated. The INR is at 3.2 today. Patient needs follow-up with primary care provider for repeat INR in 3 days. Patient will take half his normal warfarin dose tonight and then resume full dose by tomorrow. Recheck the INR in 3 days. 3. Chronic anticoagulation Status Chronic Onset Date Unknown Plan Continue with the warfarin oral Daily Discussed above one half tab tonight and resume tomorrow. Recheck INR in 3 days 4. Hypertension Status Chronic Onset Date Unknown Plan Blood pressures been well controlled Follow-up with primary care provider for adjustment of blood pressure control if needed. 5. Lumbar disc disease Status Chronic Onset Date Unknown Plan Emphasized that the patient begin movement exercises. Physical therapy would be appropriate Current status: Jennifer improved Anticipated discharge date: today Anticipated discharge placement: Patient care time: Time in chart review, patient interview, physical exam, CPOE, and care documentation: 35 mins Visit to patient today: 2 Complexity of care: Moderate/mild DVT prophylaxis: Coumadin E&M Codes Rounding: Inpt-Moderate/76361
--- NOTE | 2017-02-26 09:29 | Discharge Summary ---
Discharge Summary Report Admit Date 02/18/17 Discharge Date 02/26/17 Admission Diagnosis 1. Cellulitis left leg 2. Atrial fibrillation 3. Chronic anticoagulation 4. Hypertension 5. BPH 6. Hyperlipidemia 7. Aortic valve disease 8. Coronary artery disease 9. Rhabdomyoliosis 10. Urinary tract infection 11. Lumbar disc disease Discharge Diagnosis 1. Cellulitis left leg resolving 2. Atrial fibrillation under chronic control 3. Chronic anticoagulation under chronic control 4. Hypertension - stable 5. BPH - stable 6. Hyperlipidemia - stable 7. Aortic valve disease - able 8. Coronary artery disease - able 9. Rhabdomyoliosis - resolved 10. Urinary tract infection- resolved 11. Lumbar disc disease - stable Brief History HPI by Dr. Zaragoza dated 02/18/2017 In brief this is a 76-year-old man who was admitted for swelling of the left lower extremity that was presumed to be related to cellulitis. Hospital Course 76-year-old white male who originally presented to the [facility] emergency department with 3 days of worsening redness, swelling, warmth, and pain of the left leg; cellulitis of left lower leg. Patient was admitted to the hospitalist service to treat the cellulitis with IV antibiotics. In addition patient was also found to be with rhabdomyolysis on admission; treatment was progressive. Improved the fluid hydration. In the pre-existing complaints of back pain, known A. fib on chronic anticoagulation. Patient was maintained appropriate therapy was instituted. Patient was maintained on adequate anticoagulation. Patient's blood pressures well controlled. The cellulitis in the left lower extremity had significant reduction. The swelling and lower extremity along with a erythematous changes did not completely resolve but improved. Patient maintained an elevated white blood cell count (12.4 down from 21.9 wbc) with a downward trend. Patient CRP remained elevated at 4.6 (down from 24.6). Patient has required IV antibiotics on admission. This was however changed to oral equivalents including Augmentin and Bactrim. Patient will remain on the oral antibiotic for the next 10 days. Patient should be in to see wound care clinic and primary care provider prior to the completion of the antibiotic. General Appearance Oriented X3, No acute distress Lungs Clear to auscultation, Normal air movement Cardiovascular Normal S1, Normal S2, irregular irregular Skin swelling erythematous changes left lower extremity Psych/Mental Status Mood NL Lab/Imaging Laboratory Tests 02/25 02/26 1045 0520 Chemistry Plasma Sodium (136 - 145 mmol/L) 140 Plasma Potassium (3.5 - 5.1 mmol/L) 4.7 Plasma Chloride (98 - 107 mmol/L) 106 CO2 (Enzymatic) (21 - 32 mmol/L) 24 BUN (7 - 18 mg/dL) 54 Creatinine (0.6 - 1.3 mg/dL) 1.7 Est GFR ( Amer) (mL/min) 50.87 Est GFR (Non-Af Amer) (mL/min) 41.97 Glucose (70 - 110 mg/dL) 113 Plasma Calcium (8.5 - 10.1 mg/dL) 8.1 Total Bilirubin (0.0 - 1.0 mg/dL) 0.5 AST (15 - 37 U/L) 24 ALT (12 - 78 U/L) 37 Alkaline Phosphatase (46 - 116 U/L) 59 C-Reactive Protein (0.0 - 0.9 mg/dL) 4.6 Total Protein (6.4 - 8.2 g/dL) 5.5 Albumin (3.3 - 5.0 g/dL) 2.3 Coagulation INR (0.8 - 1.2) 3.2 Hematology WBC (4.5 - 11.5 K/uL) 12.4 RBC (4.50 - 5.90 M/uL) 3.64 Hgb (13.5 - 17.5 gm/dL) 10.6 Hct (41.0 - 53.0 %) 32.2 MCV (80 - 100 fL) 88 MCH (26 - 34 pg) 29 RDW (11.6 - 14.8 %) 13.9 Gran % 78.8 Lymph % (Auto) (25 - 40 %) 16.7 [place] % (Auto) (3 - 14 %) 4.5 Plt Count, EDTA (150 - 400 K/uL) 213 PUBS MCHC (31 - 37 g/dL) 33 ESR Westergren (0 - 20 mm/hr) 62 Toxicology Vancomycin Trough (10.0 - 20.0 ug/mL) 26.2 Discharge Instructions/Meds Patient is discharged home Patient will continue with the recommended infusion to follow up with primary care. Patient will need to have follow-up with the wound care clinic. Continue with the Home medication which includes Coumadin 2 mg by mouth Friday and Friday except Friday taken 3 mg daily. Continue vitamin D 1000 units by mouth daily. Continue B12 2500 g per mouth daily. Vicodin 7.5/325 one by mouth every 6 hours as needed. Continue the Lasix at 40 mg by mouth daily. Finasteride 5 mg by mouth daily. KCl 10 mEq by mouth daily. Gabapentin 300 mg by mouth 3 times daily. Coreg 6.25 mg by mouth daily. Additional and further recommendations regarding discharge diet, activity, followup, and discharge medications please see the patient's discharge instructions. Discharge condition: Fair, improved Greater than 30 min. was spent in the patient's discharge preparation including discharge interview and physical examination, progress note, discharge instructions, and discharge summary The patient was interviewed and examined on the day of discharge.
[2017-02-26 10:03] VITALS: BP 102/56
[2017-02-26] MEDS ORDERED: SMZ-TMP DS1 TAB PO (10:49)
[2017-02-26] MEDS ORDERED: AMOXICILLIN/CL875 MG PO (10:50)
--- NOTE | 2017-02-26 10:56 | Provider's Discharge Care Plan ---
Problem, Goal, Plan Problem List 1. Cellulitis of leg, left Goals: Improved health/wellness, Increase independence, Therapeutic intervention Instructions: regarding therapy for the next 10 days. 2. Atrial fibrillation Goals: Improve function, Therapeutic intervention, maintain pro time at 2.0 to 3.0 Instructions: Avoid processed foods, maintain adequate diet changes. 1 mg by mouth today; followed by 2 mg thereafter. Follow up with primary care for a pro time in 3-7 days. 3. Chronic anticoagulation Goals: Therapeutic intervention Instructions: Take meds as directed 4. Hypertension Goals: Improve nutrition status Instructions: Take meds as directed 5. Lumbar disc disease Goals: Improved health/wellness, Increase independence Instructions: Take meds as directed 6. Coronary artery disease Goals: Improve nutrition status, Normal growth/development Instructions: Take meds as directed 7. Hyperlipidemia Goals: Improved health/wellness, Improve nutrition status, Therapeutic intervention Instructions: Follow up as directed, Take meds as directed 8. UTI (urinary tract infection) Goals: Learn about illness, resolved Instructions: resolved UTI
== END 2017-02-26 12:10 | disposition home or self-care (01) | DRG 603 ==
LOC: ED SRH 15:50 → TRANS SRH 20:37 → CC SRH 22:01 → ACUTE2 SRH 02-23 09:46
PROVIDERS: ADMIT Internal Medicine
DX: L03.116 Cellulitis of left lower limb (principal); R23.8 Other skin changes; M62.82 Rhabdomyolysis; N39.0 Urinary tract infection, site not specified; I48.2 Chronic atrial fibrillation; Z79.01 Long term (current) use of anticoagulants; I11.0 Hypertensive heart disease with heart failure; I50.9 Heart failure, unspecified; N40.0 Benign prostatic hyperplasia without lower urinary tract symptoms; I25.10 Atherosclerotic heart disease of native coronary artery without angina pectoris; E78.5 Hyperlipidemia, unspecified; Z95.2 Presence of prosthetic heart valve; Z95.1 Presence of aortocoronary bypass graft; Z87.891 Personal history of nicotine dependence

== ENCOUNTER 2017-03-04 14:37 | Outpatient (CLI) | payer OTHER ==
[~2017-03-04 14:37] MED LIST: AMOXICILLIN/CL875 MG PO; CARVEDILOL6.25 MG PO; COUMADIN1 MG PO; FINASTERIDE5 MG PO; FUROSEMIDE40 MG PO; HYDROCODONE; NORCO1 TA2 PO; PITAVASTATIN CALCIUM PO; POTASSIUM CHLO10 ME2 PO; SMZ-TMP DS1 TAB PO; TAMSULOSIN HCL0.4 MG PO; VITAMIN B 12; VITAMIN D-31000 UNIT PO
== END 2017-03-04 23:00 | disposition home or self-care (01) ==
LOC: LAB SRH 14:37
DX: E78.00 Pure hypercholesterolemia, unspecified (principal); I10 Essential (primary) hypertension; I48.2 Chronic atrial fibrillation; L03.116 Cellulitis of left lower limb; Z13.1 Encounter for screening for diabetes mellitus
CPT/HCPCS: 90074; 90100; 90946; 91286; 92690; 94060; 95059